=== PATIENT | male | born 1995 | race Two or more races ===

== ENCOUNTER 2018-11-12 15:37 | Inpatient (IN) | payer MEDICAID ==
[2018-11-12] VITALS (7 sets, daily range): BP systolic 118–135; BP diastolic 73–87
[~2018-11-12] VITALS: Ht 180.3 cm; Wt 73.5 kg
--- NOTE | 2018-11-12 15:37 | NUR ---
ED Nurse Note: DR KEMP EXPLAINED TO PT THAT HE NEEDS TO BE ADMITTED DUE TO INFECTION. PT IS AGITATED. RESTLESS AND COMBATIVE. YELLING AT DR KEMP AND PRIMARY RN. OFFICE MACHINE INSPECTOR CALLED.
--- NOTE | 2018-11-12 15:38 | NUR ---
ED Nurse Note: PT BROUGHT IN BY EMS DUE TO RIGHT WRIST INFECTION. PER EMS, PT WAS DETAINED WITH [employer] A FEW DAYS AGO AND TRIED TO REMOVE HAND FROM IT AND STARTED TO SHOW SIGNS OF REDNESS, SWELLING AND LACERATION. PT IS AAO X4, AMBULATORY, NOTED RIGHT WRIST AND HAND SWELLING WITH REDNESS AND DEEP LACERATION WITH PUS SURROUNDING WRIST. ALSO NOTED LEFT WRIST LACERATION WITH SLIGHT REDNESS. DR KEMP AWARE.
[2018-11-12] MEDS ORDERED: Haloperidol 5mg/ml Inj ONE (15:40)
[2018-11-12] MEDS ORDERED: DiphenhydrAMINE 50mg/ml Inj ONE (15:41)
[2018-11-12] MEDS ORDERED: LORazepam Inj 2mg/ml 1ml ONE (15:41)
[2018-11-12] MEDS ORDERED: LORazepam Inj 2mg/ml 1ml IM ONE (15:45)
[2018-11-12] MEDS ORDERED: DiphenhydrAMINE 50mg/ml Inj IM ONE (15:45)
[2018-11-12] MEDS ORDERED: Haloperidol 5mg/ml Inj IM ONE (15:45)
--- NOTE | 2018-11-12 15:53 | Emergency Room Report ---
History of Present Illness General Chief Complaint: Laceration Source: Patient, EMS (Yan Green MD) Present Illness HPI Patient is residing at a rehab [facility]. EMS was called because he has a right wrist injury from handcuffs several days ago. They feel that the wound is getting worse and needs further care. EMS was called out and then he refused to go initially. The second time they convinced him to be transported. The patient states he supposed be taking antibiotics at this time. It is unknown what evaluation transpired prior to his being at this rehab facility. The patient has a history of schizophrenia. Unknown what medications he is taking at this time. Apparently he was arrested at the facility Tuesday or Tuesday. He was placed in handcuffs at that time. Records from [facility] from November 09 reviewed. Apparently an ultrasound was performed on the lesions. No abscess was found bilaterally. He signed out AGAINST MEDICAL ADVICE. He was given prescriptions of Bactrim and Keflex. Apparently he never filled these. According to the documentation the skin was abraded but intact of the right wrist. Patient unable to answer other questions. (Yan Green MD) Allergies: Coded Allergies: No Known Allergies (Unverified , 11/12/18) Patient History Limited by: medical condition, other - patient refusing to answer questions Past Medical History: see triage record Social History: Reports: smoking, drug use Social History Narrative rehab facility Reviewed Nursing Documentation: PMH: Agreed; PSxH: Agreed (Yan Green MD) Review of Systems All Other Systems: limited (Yan Green MD) Physical Exam Vital Signs Date Time Temp Pulse Resp B/P (MAP) Pulse Ox O2 Delivery O2 Flow Rate FiO2 11/12/18 15:28 97.7 81 16 125/76 (92) 97 Room Air Sp02 EP Interpretation: reviewed, normal General Appearance: well appearing, GCS 15, mild distress Head: normocephalic, atraumatic Eyes: bilateral eye PERRL, bilateral eye Scleral Injection ENT: dry mucus membranes Neck: supple Respiratory: lungs clear, normal breath sounds Cardiovascular #1: regular rate, rhythm Cardiovascular #2: 2+ radial (R) - good capillary fill, 2+ radial (L) Gastrointestinal: normal inspection, normal bowel sounds, non tender, no mass, non-distended Musculoskeletal: back normal, gait/station normal, normal range of motion, swelling - R hand and forearm Neurologic: alert, normal gait, motor weakness - R hand, sensory deficit - superficial radial - hard to assess, oriented - X2 Psychiatric: anxious, other - paranoid, violent Skin: normal inspection, warm/dry, laceration - deep R wrist radial side to bone, tendons lacerated, erythema extends up to elbow, lesser lacs bilat L and also ulnar side of R wrist (Yan Green MD) Procedures Critical Care Time Critical Care Time Total Critical Care Time: Psychosis, 120 min bedside evaluation and treatment excludes procedures (EKG). Reason for critical care: Violent behavior, open wound with tendon laceration right wrist, cellulitis, possible sepsis Possible complications: hypotension, hypertension, OH, shock, arrhythmias, metabolic acidosis, end organ damage, respiratory failure. Interventions: Restraints, sedation, sepsis resuscitation, IV antibiotics, wound dressing, multiple attempts at transfer, admission with discussion with admitting physician and consults discussion with family Course: Patient presented with open wound right forearm and psychosis. Restraints and sedation needed. Evaluation of wounds with examination and labs. Fluid resuscitation and antibiotics begun. Tetanus administered. Repeat evaluation and removal of restraints. Discussion with family. Tracking down old records and discussion with [employer]. Multiple attempts at transfer to higher level of care with multiple presentations. Discussion with admitting physician and in-house orthopedic and surgery consultants. Consultations: nursing staff, EMS, family, JOSÉ MIGUEL [place], [facility], [facility], admitting MD, ortho and surgery consults Performed by: Dr. Green Tolerated well condition = serious (Yan Green MD) Medical Decision Making Medical: Substance Abuse Behavioral: Schizophrenia Reaction to Intervention: Escalated Behavior Restraint Reassesment I, Yan Green MD, have personally evaluated this patient. Laboratory tests have been reviewed and addressed accordingly. The patient is deemed to present a danger to themselves and/or others. This is based on the exam, history and observed or reported behavior. Attempts for non-invasive measures have been considered and/or attempted, however, have been futile. It is in the best interest of the nursing staff, the patient, and others involved in this patient's care that behavioral restraints be applied. Patient evaluation reveals the following: patient with life threatening injury to R wrist and delusional and paranoid. Escalating and not responding to attempts to calm. (Yan Green MD) Diagnostic Impression: Primary Impression: Wrist laceration Qualified Codes: S61.511A - Laceration without foreign body of right wrist, initial encounter Additional Impressions: Cellulitis Qualified Codes: L03.113 - Cellulitis of right upper limb Elevated lactic acid level Amphetamine abuse Schizoaffective disorder Qualified Codes: F25.9 - Schizoaffective disorder, unspecified Extensor tendon laceration of finger with open wound Qualified Codes: S56.429A - Laceration of extensor muscle, fascia and tendon of unspecified finger at forearm level, initial encounter; S61.209A - Unspecified open wound of unspecified finger without damage to nail, initial encounter Psychosis Qualified Codes: F29 - Unspecified psychosis not due to a substance or known physiological condition ER Course Patient presents with a deep laceration to the right radial side of the wrist with tendon injury and bone exposed. This is a potentially life and limb threatening if infection and injury. Cultures and lab work will be obtained. Antibiotics will be begun intravenously. This will need higher level of care surgical treatment. Patient with paranoid delusions and psychotic and combative. Restraints applied and sedation ordered. Presented to [facility]. D/C restraints. Elevated lactic acid. Sepsis resuscitation initiated and antibiotics had been ordered. (Contact JOSÉ MIGUEL and [facility]). [facility] not moving on transfer. Asks we call [facility] and [facility]. JOSÉ MIGUEL here. [facility] not have capacity. [facility] no beds - capacity. Represented to [facility]. Request labs. 20:[address] You. Initially stated that he would consider accepting the patient. Transfer center called back - stated they wanted an MRI before accepting the patient. I stated we did not have this capacity. They stated they refused the patient. They also requested employment specialist/program manager to see the patient. Admit Dr. Pierce. Consult with Dr. Emerson and Dr. Alexandra sent. As patient with recent psychosis, unable to sign out. Sitter requested. Apparently the lesions and skin were intact on November 09. This suggests either the wrist lesion opened up on its own or he did something to cut into himself. Laboratory Tests Test 11/12/18 15:58 11/12/18 16:20 11/12/18 18:30 White Blood Count 10.6 K/UL (4.8-10.8) Red Blood Count 4.69 M/UL (4.70-6.10) L Hemoglobin 13.1 G/DL (14.2-18.0) L Hematocrit 37.9 % (42.0-52.0) L Mean Corpuscular Volume 81 FL (80-99) Mean Corpuscular Hemoglobin 28.0 PG (27.0-31.0) Mean Corpuscular Hemoglobin Concent 34.6 G/DL (32.0-36.0) Red Cell Distribution Width 12.9 % (11.6-14.8) Platelet Count 285 K/UL (150-450) Mean Platelet Volume 5.5 FL (6.5-10.1) L Neutrophils (%) (Auto) 64.2 % (45.0-75.0) Lymphocytes (%) (Auto) 20.2 % (20.0-45.0) Monocytes (%) (Auto) 13.8 % (1.0-10.0) H Eosinophils (%) (Auto) 0.8 % (0.0-3.0) Basophils (%) (Auto) 1.0 % (0.0-2.0) Sodium Level 143 MMOL/L (136-145) Potassium Level 3.4 MMOL/L (3.5-5.1) L Chloride Level 105 MMOL/L (98-107) Carbon Dioxide Level 18 MMOL/L (21-32) L Anion Gap 20 mmol/L (5-15) H Blood Urea Nitrogen 18 mg/dL (7-18) Creatinine 1.2 MG/DL (0.55-1.30) Estimate Glomerular Filtration Rate > 60 mL/min (>60) Glucose Level 117 MG/DL (74-106) H Lactic Acid Level 7.40 mmol/L (0.4-2.0) H 0.50 mmol/L (0.66-2.22) L Calcium Level 9.4 MG/DL (8.5-10.1) Total Bilirubin 0.6 MG/DL (0.2-1.0) Aspartate Amino Transferase (AST) 17 U/L (15-37) Alanine Aminotransferase (ALT) 27 U/L (12-78) Alkaline Phosphatase 97 U/L (46-116) Total Creatine Kinase 129 U/L (26-308) Total Protein 7.8 G/DL (6.4-8.2) Albumin 3.2 G/DL (3.4-5.0) L Globulin 4.6 g/dL Albumin/Globulin Ratio 0.7 (1.0-2.7) L Salicylates Level 1.9 ug/mL (2.8-20) L Acetaminophen Level < 2 MCG/ML (10-30) L Serum Alcohol < 3 mg/dL Urine Color Yellow Urine Appearance Cloudy Urine pH 6 (4.5-8.0) Urine Specific [place] 1.020 (1.005-1.035) Urine Protein 2+ (NEGATIVE) H Urine Glucose (UA) Negative (NEGATIVE) Urine Ketones 1+ (NEGATIVE) H Urine Blood 5+ (NEGATIVE) H Urine Nitrite Negative (NEGATIVE) Urine Bilirubin Negative (NEGATIVE) Urine Urobilinogen 1 MG/DL (0.0-1.0) H Urine Leukocyte Esterase 1+ (NEGATIVE) H Urine RBC Tntc /HPF (0 - 0) H Urine WBC 2-4 /HPF (0 - 0) Urine Squamous Epithelial Cells Moderate /LPF (NONE/OCC) H Urine Bacteria Few /HPF (NONE) Urine Opiates Screen Negative (NEGATIVE) Urine Barbiturates Screen Negative (NEGATIVE) Phencyclidine (PCP) Screen Negative (NEGATIVE) Urine Amphetamines Screen Positive (NEGATIVE) H Urine Benzodiazepines Screen Negative (NEGATIVE) Urine Cocaine Screen Negative (NEGATIVE) Urine Marijuana (THC) Screen Positive (NEGATIVE) H (Yan Green MD) ER Course Dr. Alexandra called regarding patient. I discussed the case with him. Patient is otherwise stable. He is calm. He does not need emergent surgery or orthopedic consultation at this moment in time. Dr. Alexandra will see the patient as consultation in the morning. (Moise Ng MD) Other X-Ray Diagnostic Results Other X-Ray Diagnostic Results : X-Ray ordered: R wrist # of Views/Limited Vs Complete: 3 View Indication: Other EP Interpretation: Yes Interpretation: no dislocation, no fractures, other - ST defect Impression: Other Electronically Signed by: Electronically signed by Yan Green MD (Yan Green MD) Last Vital Signs Date Time Temp Pulse Resp B/P (MAP) Pulse Ox O2 Delivery O2 Flow Rate FiO2 11/12/18 21:20 97.9 73 16 134/85 100 Room Air Status: improved (Yan Green MD) Disposition: ADMITTED INPATIENT Condition: Serious Scripts Unable to Obtain Active Prescriptions or Reported Meds Yan Green MD Nov 12, 2018 15:53 Moise Ng MD Nov 12, 2018 23:03
--- NOTE | 2018-11-12 16:00 | NUR ---
ED Nurse Note: BELONGINGS PLACED ON PSYCH LOCKER #3.
[2018-11-12 16:11] LABS: EOSINOPHILS % (AUTO) 0.8 % (0.0-3.0); HEMATOCRIT 37.9 % (42.0-52.0); HEMOGLOBIN 13.1 G/DL (14.2-18.0); LYMPHOCYTES % (AUTO) 20.2 % (20.0-45.0); MEAN CORPUSCULAR VOLUME 81 FL (80-99); MONOCYTES % (AUTO) 13.8 % (1.0-10.0); NEUTROPHILS % (AUTO) 64.2 % (45.0-75.0); PLATELET COUNT 285 K/UL (150-450); RED BLOOD COUNT 4.69 M/UL (4.70-6.10); RED CELL DISTRIBUTION WIDTH 12.9 % (11.6-14.8); WHITE BLOOD COUNT 10.6 K/UL (4.8-10.8)
--- NOTE | 2018-11-12 16:16 | NUR ---
ED Nurse Note: PT IS CALM AND COOPERATIVE AT THIS TIME. ABLE TO FOLLOW COMMANDS. DR KEMP NOTIFIED.
[2018-11-12 16:22] LABS: ANION GAP 20 mmol/L (5-15); BLOOD UREA NITROGEN 18 mg/dL (7-18); CALCIUM 9.4 MG/DL (8.5-10.1); CARBON DIOXIDE 18 MMOL/L (21-32); CHLORIDE 105 MMOL/L (98-107); CREATININE 1.2 MG/DL (0.55-1.30); POTASSIUM 3.4 MMOL/L (3.5-5.1); SODIUM 143 MMOL/L (136-145)
--- NOTE | 2018-11-12 16:30 | NUR ---
ED Nurse Note: COVERED RIGHT WRIST WITH ABD PAD AND WRAPPED WITH KERLIX THEN SECURED WITH TAPE.
[2018-11-12 16:38] LABS: ALANINE AMINOTRANSFERASE 27 U/L (12-78); ALBUMIN 3.2 G/DL (3.4-5.0); ALBUMIN/GLOBULIN RATIO 0.7 (1.0-2.7); ALKALINE PHOSPHATASE 97 U/L (46-116); ASPARTATE AMINO TRANSFERASE 17 U/L (15-37); BILIRUBIN,TOTAL 0.6 MG/DL (0.2-1.0); CREATINE KINASE 129 U/L (26-308)
--- NOTE | 2018-11-12 16:57 | NUR ---
ED Nurse Note: URINE COLLECTED THEN SENT.
--- NOTE | 2018-11-12 17:01 | NUR ---
ED Nurse Note: FAMILY MEMBERS AT THE BED SIDE.
[2018-11-12 17:10] LABS: APPEARANCE,URINE CLOUDY; BILIRUBIN, URINE NEGATIVE (NEGATIVE); GLUCOSE, URINE (UA) NEGATIVE (NEGATIVE); KETONES,URINE 1+ (NEGATIVE); LEUKOCYTE ESTERASE ,URINE 1+ (NEGATIVE); NITRITE,URINE NEGATIVE (NEGATIVE); PH,URINE 6 (4.5-8.0); PROTEIN,URINE 2+ (NEGATIVE); UROBILINOGEN,URINE 1 MG/DL (0.0-1.0)
[2018-11-12 17:14] LABS: COLOR,URINE YELLOW
[2018-11-12] MEDS ORDERED: Tetanus/Diptheria/Pertussis IM ONE (17:45)
--- NOTE | 2018-11-12 19:06 | NUR ---
HAND-OFF: Report given to RODRÍGUEZ NICKERSON.
--- NOTE | 2018-11-12 19:07 | NUR ---
ED Nurse Note: PT RESTING IN BED, FAMILY AT BEDSIDE, VSS AT THE MOMENT NO SIGNS OF ACUTE DISTRESS.
--- NOTE | 2018-11-12 19:09 | NUR ---
Jason speaking with Guanaco at [facility] fac e sheet and doctors dictation faxed to [phone] as requested.
--- NOTE | 2018-11-12 19:09 | NUR ---
ED Nurse Note: NOTED RIGHT CALF CLOSED SORE AND RIGHT ACHILLES HEALED LESION. PT WOUND ON RIGHT WRIST HAS BEEN CLEANED AND DRESSED PER POWERHOUSE OILER. NOTED HEALED WOUND ON LEFT WRIST IS CLEAN AND INTACT.
--- NOTE | 2018-11-12 19:29 | NUR ---
ED Nurse Note: ERMD AND [employer] AT BEDSIDE
--- NOTE | 2018-11-12 20:30 | NUR ---
Ramon from [facility](op#[id number]) called-no availabe beds at count of [place] or [facility]. notified.
--- NOTE | 2018-11-12 21:11 | NUR ---
ED Nurse Note: pt right wrist dressing was changed again per fly raiser lockstitch. pt is resting in bed, no acute signs of distress. 300ml/hr 1 L NS running per ermd.
--- NOTE | 2018-11-12 22:05 | NUR ---
ED Nurse Note: xray at bedside
--- NOTE | 2018-11-12 22:09 | NUR ---
ED Nurse Note: Xray complete
--- NOTE | 2018-11-12 23:00 | NUR ---
ED Nurse Note: Pt is asleep in bed, provided pt with an additional blanket.
--- NOTE | 2018-11-12 23:27 | NUR ---
ED Nurse Note: telephone endorsement given to KRISHAN Valentine
--- NOTE | 2018-11-12 23:28 | NUR ---
NURSE NOTES: Telephone report taken from BHARGAVI Bartlett RN.
--- NOTE | 2018-11-13 | NUR ---
ED Nurse Note: PT TRANSFERRED TO TELE BY JOHN ZEPEDA. PT IS AOX4, ON ROOM AIR, PT SKIN INTACT EXEMPT FROM THOSE DOCUMENTED. PLEASE REFER TO INTERVENTION AND NURSES NOTES. PT SHOWS NO ACUTE DISTRESS S/S. ALL BELONGINGS HAVE BEEN BROUGHT UP TO TELE WITH PT.
[2018-11-13 00:10] VITALS: BP 114/69
--- NOTE | 2018-11-13 00:10 | NUR ---
NURSE NOTES: Patient brought up to floor via [facility] with BHARGAVI Guerrero transport. Patient is sedated, responds to name, shaking, and pain, but immediately falls back to sleep. No signs of distress on room air. Is having pain through the right wrist, as observed by facial grimacing, pulling extremity away, and slight moaning. Further pain assessment to be done. IV site is c/d/i and patent, no fluids running currently. Multiple skin issues present. Left wrist has closed laceration wound, no photo take. Rt lower leg has 2 closed wounds. Right wrist is major area of concern. Upon removal of bandage it shows major lacerations on internal larger than external areas. Photos taken and wound cleaned before redressing, wound assessment done, see interventions. VS stable. MD contacted for new patient orders, awaiting phone call. Belonging at bedside, signed by RN, patient alert that belongings are at bedside. Continue to monitor all areas of skin concern, wound consult to be placed. Bed in lowest position, call light within reach.
[2018-11-13] MEDS ORDERED: DiphenhydrAMINE 50mg/ml Inj IVP PRN (01:30)
[2018-11-13] MEDS ORDERED: LORazepam Inj 2mg/ml 1ml IV PRN (01:30)
[2018-11-13] MEDS ORDERED: Piperacillin/Tazobactam 3.375 GM in NS 110 ML IVPB SCH (02:00)
[2018-11-13] MEDS: Vancomycin 750mg/D5W 275ml IVPB SCH ×6 (02:40→18:46)
--- NOTE | 2018-11-13 03:00 | NUR ---
NURSE NOTES: Patient woke up asking for food, RN got him something to eat. Changed his dressing again, krillex, saline gauze, dry gauze, and bandage wrap. Continue to monitor wound.
[2018-11-13 04:00] VITALS: BP 118/71
[2018-11-13] MEDS: Piperacillin/Tazobactam 3.375 GM in NS 110 ML IVPB SCH ×3 (04:00→20:35)
--- NOTE | 2018-11-13 07:10 | NUR ---
NURSE NOTES:bedside rounds with mike mohr.patient asleep,room air,nad.,iv infusing well.will continue to monitor.
[2018-11-13 07:13] LABS: BASOPHILS % (AUTO) 1.8 % (0.0-2.0); EOSINOPHILS % (AUTO) 2.6 % (0.0-3.0); HEMATOCRIT 35.7 % (42.0-52.0); HEMOGLOBIN 12.3 G/DL (14.2-18.0); LYMPHOCYTES % (AUTO) 24.1 % (20.0-45.0); MEAN CORPUSCULAR VOLUME 82 FL (80-99); MONOCYTES % (AUTO) 13.9 % (1.0-10.0); NEUTROPHILS % (AUTO) 57.6 % (45.0-75.0); PLATELET COUNT 248 K/UL (150-450); RED BLOOD COUNT 4.34 M/UL (4.70-6.10); RED CELL DISTRIBUTION WIDTH 13.8 % (11.6-14.8); WHITE BLOOD COUNT 6.3 K/UL (4.8-10.8)
--- NOTE | 2018-11-13 07:16 | NUR ---
HAND-OFF: Report given to KRISHAN Ramírez. Patient is asleep in bed, VS stable. Wound consult placed.
[2018-11-13 07:30] LABS: ANION GAP 9 mmol/L (5-15); BLOOD UREA NITROGEN 6 mg/dL (7-18); CALCIUM 8.3 MG/DL (8.5-10.1); CARBON DIOXIDE 25 MMOL/L (21-32); CHLORIDE 107 MMOL/L (98-107); CREATININE 0.6 MG/DL (0.55-1.30); POTASSIUM 3.3 MMOL/L (3.5-5.1); SODIUM 141 MMOL/L (136-145)
[2018-11-13 08:00] VITALS: BP 118/62
--- NOTE | 2018-11-13 08:55 | NUR ---
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
[2018-11-13 12:00] VITALS: BP 129/71
[2018-11-13] MEDS ORDERED: Isovue-300 100ml vial INJ PRN (13:45)
--- NOTE | 2018-11-13 14:14 | NUR ---
NURSE NOTES:SEEN BY WOUND NURSE,AND REDRESSED RIGHT WRIST WOUND WITH ZEROFORM,08/31,MAR[facility] ANTONIO. Addendum: 11/13/18 at 1421 by KIRSTIE HAYES RN NURSE NOTES:RIGHT HAND SWOLLEN,WARM TO TOUCH,ABLE TO MOVE,CLAIMS HE HAS PAIN ONLY ON MOVEMENT.
[2018-11-13] MEDS ORDERED: Gadavist 7.5mMol/7.5ml vial IV PRN (15:30)
--- NOTE | 2018-11-13 15:36 | Consultation ---
History of Present Illness General Date patient seen: Nov 13, 2018 Reason for Hospitalization: Laceration Present Illness HPI This is a 23-year-old male who presented to the emergency department at [facility] with worsening right wrist wound. Patient states that he was placed by [employer] in handcuffs few days ago and was extremely combative where he sustained a large laceration because of the handcuffs to the wrist. He did not take care of the wound since and has been worsening. He states he went to outside facility and was given oral antibiotics and discharged. Upon presentation to [facility] he was recommended for transfer to tertiary center with a hand surgeon but was unable to be transferred and required admission. Surgery called to evaluate. Patient seen, patient evaluated, chart reviewed. Allergies: Coded Allergies: No Known Allergies (Unverified , 11/12/18) Medication History Unable to Obtain Active Prescriptions or Reported Meds Patient History History Provided By: Patient, Medical Record, PMD Healthcare decision maker Resuscitation status Full Code Advanced Directive on File Past Medical/Surgical History Past Medical/Surgical History: (1) Psychosis (2) Extensor tendon laceration of finger with open wound (3) Elevated lactic acid level (4) Schizoaffective disorder (5) Amphetamine abuse (6) Wrist laceration (7) Cellulitis Review of Systems Review of Symptoms General ROS: no weight loss or fever Psychological ROS: no depression or mood changes, no memory loss Ophthalmic ROS: no visual changes or eye irritation ENT ROS: no nasal congestion, hearing loss, dizziness Allergy and Immunology ROS: no allergic symptoms or urticaria Hematological and Lymphatic ROS: no swollen glands, unusual bleeding or bruising Endocrine ROS: no polyuria, polydipsia, weight changes, temperature intolerance Respiratory ROS: no cough, shortness of breath, or wheezing Cardiovascular ROS: no chest pain or dyspnea on exertion Gastrointestinal ROS: denies abdominal pain, no bright red blood in stool. Musculoskeletal ROS: no myalgias or arthralgias Neurological ROS: no TIA or stroke symptoms Dermatological ROS: no new or changing skin lesions, rashes or pruritis Physical Exam Physical Exam General appearance: alert, cooperative, no distress, appears stated age Head: Normocephalic, without obvious abnormality, atraumatic Eyes: conjunctivae/corneas clear. PERRL, EOM's intact. Fundi benign Throat: Lips, mucosa, and tongue normal. Teeth and gums normal Neck: supple, symmetrical, trachea midline, no adenopathy, thyroid: not enlarged, symmetric, no tenderness/mass/nodules, no carotid bruit and no JVD Lungs: clear to auscultation bilaterally Heart: regular rate and rhythm, S1, S2 normal, no murmur, click, rub or gallop Abdomen: soft, non-tender. Bowel sounds normal. No masses, no organomegaly Extremities: extremities traumatic as noted in photos and below with edema Pulses: 2+ and symmetric Skin: Skin color, texture, turgor normal. No rashes or lesions Neurologic: Grossly normal Last 24 Hour Vital Signs Date Time Temp Pulse Resp B/P (MAP) Pulse Ox O2 Delivery O2 Flow Rate FiO2 11/13/18 12:00 98.0 75 20 129/71 (90) 98 11/13/18 09:45 Room Air 11/13/18 08:00 98.0 74 19 118/62 (80) 98 11/13/18 04:00 98.1 68 18 118/71 (87) 99 11/13/18 01:09 Room Air 11/13/18 00:10 97.8 68 18 114/69 (84) 99 11/13/18 00:00 98.2 88 16 127/85 98 Room Air 11/12/18 21:20 97.9 73 16 134/85 100 Room Air 11/12/18 19:05 98.4 67 16 121/84 100 Room Air 11/12/18 17:35 98.0 75 18 122/87 100 Room Air 11/12/18 16:22 89 15 98 Room Air 11/12/18 16:07 83 15 100 Room Air 11/12/18 15:52 75 16 99 Room Air 11/12/18 15:37 97.7 88 20 135/78 98 Room Air 11/12/18 15:37 88 20 98 Room Air 11/12/18 15:28 97.7 81 16 125/76 (92) 97 Room Air Intake and Output 11/12/18 11/13/18 19:00 07:00 Intake Total 2800 ml 1025 ml Output Total 1100 ml Balance 2800 ml -75 ml Intake Oral 425 ml IV Total 2800 ml 600 ml Output Urine Total 1100 ml # Voids 2 Laboratory Tests Test 11/12/18 15:58 11/12/18 16:20 6/16/19 18:30 11/13/18 05:48 White Blood Count 10.6 K/UL (4.8-10.8) 6.3 K/UL (4.8-10.8) Red Blood Count 4.69 M/UL (4.70-6.10) L 4.34 M/UL (4.70-6.10) L Hemoglobin 13.1 G/DL (14.2-18.0) L 12.3 G/DL (14.2-18.0) L Hematocrit 37.9 % (42.0-52.0) L 35.7 % (42.0-52.0) L Mean Corpuscular Volume 81 FL (80-99) 82 FL (80-99) Mean Corpuscular Hemoglobin 28.0 PG (27.0-31.0) 28.3 PG (27.0-31.0) Mean Corpuscular Hemoglobin Concent 34.6 G/DL (32.0-36.0) 34.4 G/DL (32.0-36.0) Red Cell Distribution Width 12.9 % (11.6-14.8) 13.8 % (11.6-14.8) Platelet Count 285 K/UL (150-450) 248 K/UL (150-450) Mean Platelet Volume 5.5 FL (6.5-10.1) L 5.5 FL (6.5-10.1) L Neutrophils (%) (Auto) 64.2 % (45.0-75.0) 57.6 % (45.0-75.0) Lymphocytes (%) (Auto) 20.2 % (20.0-45.0) 24.1 % (20.0-45.0) Monocytes (%) (Auto) 13.8 % (1.0-10.0) H 13.9 % (1.0-10.0) H Eosinophils (%) (Auto) 0.8 % (0.0-3.0) 2.6 % (0.0-3.0) Basophils (%) (Auto) 1.0 % (0.0-2.0) 1.8 % (0.0-2.0) Sodium Level 143 MMOL/L (136-145) 141 MMOL/L (136-145) Potassium Level 3.4 MMOL/L (3.5-5.1) L 3.3 MMOL/L (3.5-5.1) L Chloride Level 105 MMOL/L (98-107) 107 MMOL/L (98-107) Carbon Dioxide Level 18 MMOL/L (21-32) L 25 MMOL/L (21-32) Anion Gap 20 mmol/L (5-15) H 9 mmol/L (5-15) Blood Urea Nitrogen 18 mg/dL (7-18) 6 mg/dL (7-18) L Creatinine 1.2 MG/DL (0.55-1.30) 0.6 MG/DL (0.55-1.30) Estimat Glomerular Filtration Rate > 60 mL/min (>60) > 60 mL/min (>60) Glucose Level 117 MG/DL (74-106) H 100 MG/DL (74-106) Lactic Acid Level 7.40 mmol/L (0.4-2.0) H 0.50 mmol/L (0.66-2.22) L Calcium Level 9.4 MG/DL (8.5-10.1) 8.3 MG/DL (8.5-10.1) L Total Bilirubin 0.6 MG/DL (0.2-1.0) Aspartate Amino Transf (AST/SGOT) 17 U/L (15-37) Alanine Aminotransferase (ALT/SGPT) 27 U/L (12-78) Alkaline Phosphatase 97 U/L (46-116) Total Creatine Kinase 129 U/L (26-308) Total Protein 7.8 G/DL (6.4-8.2) Albumin 3.2 G/DL (3.4-5.0) L Globulin 4.6 g/dL Albumin/Globulin Ratio 0.7 (1.0-2.7) L Salicylates Level 1.9 ug/mL (2.8-20) L Acetaminophen Level < 2 MCG/ML (10-30) L Serum Alcohol < 3 mg/dL Urine Color Yellow Urine Appearance Cloudy Urine pH 6 (4.5-8.0) Urine Specific [place] 1.020 (1.005-1.035) Urine Protein 2+ (NEGATIVE) H Urine Glucose (UA) Negative (NEGATIVE) Urine Ketones 1+ (NEGATIVE) H Urine Blood 5+ (NEGATIVE) H Urine Nitrite Negative (NEGATIVE) Urine Bilirubin Negative (NEGATIVE) Urine Urobilinogen 1 MG/DL (0.0-1.0) H Urine Leukocyte Esterase 1+ (NEGATIVE) H Urine RBC Tntc /HPF (0 - 0) H Urine WBC 2-4 /HPF (0 - 0) Urine Squamous Epithelial Cells Moderate /LPF (NONE/OCC) H Urine Bacteria Few /HPF (NONE) Urine Opiates Screen Negative (NEGATIVE) Urine Barbiturates Screen Negative (NEGATIVE) Phencyclidine (PCP) Screen Negative (NEGATIVE) Urine Amphetamines Screen Positive (NEGATIVE) H Urine Benzodiazepines Screen Negative (NEGATIVE) Urine Cocaine Screen Negative (NEGATIVE) Urine Marijuana (THC) Screen Positive (NEGATIVE) H Microbiology Date/Time Source Procedure Growth Status 11/12/18 16:00 Wrist Right Gram Stain - Final Resulted 11/12/18 16:00 Wound Culture - Preliminary Streptococcus Group A Resulted Height (Feet): 5 Height (Inches): 9.00 Weight (Pounds): 130 Medications Current Medications Medications (Trade) Dose Ordered Sig/Elizabeth Route PRN Reason Start Time Stop Time Status Last Admin Dose Admin Acetaminophen (Tylenol) 650 mg Q4H PRN ORAL Mild Pain/Temp > 100.5 11/13/18 01:30 12/13/18 01:29 Al Hydroxide/Mg Hydroxide (Mylanta) 30 ml Q4H PRN ORAL Heartburn 11/13/18 01:30 12/13/18 01:29 Diphenhydramine HCl (Benadryl) 50 mg Q6H PRN IVP Itching 11/13/18 01:30 12/13/18 01:29 Iopamidol (Isovue-300 100ml) 100 ml NOW PRN INJ Radiology Procedure 11/13/18 13:45 11/15/18 13:35 Lorazepam (Ativan 2mg/ml 1ml) 1 mg Q3H PRN IV For Anxiety 11/13/18 01:30 11/20/18 01:29 Morphine Sulfate (Morphine Sulfate) 2 mg Q3H PRN IVP For Pain 11/13/18 01:30 11/20/18 01:29 Ondansetron HCl (Zofran) 4 mg Q6H PRN IVP Nausea & Vomiting 11/13/18 01:30 12/13/18 01:29 Pantoprazole (Protonix) 40 mg BID ORAL 11/13/18 09:00 12/13/18 08:59 11/13/18 10:26 Piperacillin Sod/ Tazobactam Sod 3.375 gm/Sodium Chloride 110 ml @ 27.5 mls/hr Q8H IVPB 11/13/18 04:00 11/20/18 03:59 11/13/18 12:32 Sodium Chloride 1,000 ml @ 100 mls/hr Q10H IV 11/13/18 01:30 12/13/18 01:29 11/13/18 01:30 Tetanus/ Diphtheria Toxoids Adsorbed (Tetanus/ Diphtheria Toxoid adsorbed) 0.5 ml ONCE ONCE IM 11/13/18 16:00 11/13/18 16:01 Vancomycin HCl (Vanco rx to dose) 1 ea DAILY PRN MISC Per rx protocol 11/13/18 01:30 12/13/18 01:29 Vancomycin HCl 750 mg/Dextrose 275 ml @ 183.333 mls/hr Q8H IVPB 11/13/18 03:00 11/18/18 02:59 11/13/18 11:24 Assessment/Plan Problem List: (1) Wrist laceration Assessment & Plan: 23-year-old male with history of IVDA and psych issues presents with worsening right wrist laceration/open wound after sustaining wound from being in handcuffs and combative. On the right wrist patient has a near circumferential approximately two thirds of the wrist with loss of dermis and subcutis tissue down to tendon with slough and mildly foul odor. There is edema of the right hand and all digits. Patient does have motor and sensory passive and active in the right hand and extremity. He does not exhibit any signs of radial median or ulnar nerve injury. He has a palpable right radial artery which is a significant portion of the subcu tissue has been lost. I agree with the ER physician strongly recommend the patient should have gone to a tertiary center for care. Multiple tertiary centers including [facility] and [facility] were contacted for transfer given the trauma and patient needs but declined for numerous reasons. Patient is currently in our hospital facility where hand surgeon is not available. I myself is the on-call general surgeon evaluated the patient and identified that he is at risk for developing further infection and potentially loss of limb. Given these findings I discussed the above with patient in detail. Patient expressed understanding. In the meantime until patient will require care and will plan for taking patient in the operating room for wound washout debridement nonviable tissue and possible wound VAC placement. IV antibiotics IV fluids Local wound care Thank you will follow with Recs ICD Codes: S61.519A - Laceration without foreign body of unspecified wrist, initial encounter SNOMED: 912483817 Qualifiers: Qualified Codes: S61.511A - Laceration without foreign body of right wrist, initial encounter (2) Cellulitis ICD Codes: L03.90 - Cellulitis, unspecified SNOMED: 176634778 Qualifiers: Qualified Codes: L03.113 - Cellulitis of right upper limb (3) Psychosis ICD Codes: F29 - Unspecified psychosis not due to a substance or known physiological condition SNOMED: 34708007 Qualifiers: Qualified Codes: F29 - Unspecified psychosis not due to a substance or known physiological condition (4) Extensor tendon laceration of finger with open wound ICD Codes: S56.429A - Laceration of extensor muscle, fascia and tendon of unspecified finger at forearm level, initial encounter; S61.209A - Unspecified open wound of unspecified finger without damage to nail, initial encounter SNOMED: 99128790 Qualifiers: Qualified Codes: S56.429A - Laceration of extensor muscle, fascia and tendon of unspecified finger at forearm level, initial encounter; S61.209A - Unspecified open wound of unspecified finger without damage to nail, initial encounter (5) Elevated lactic acid level ICD Codes: R79.89 - Other specified abnormal findings of blood chemistry SNOMED: 4277666 (6) Schizoaffective disorder ICD Codes: F25.9 - Schizoaffective disorder, unspecified SNOMED: 63429925 Qualifiers: Qualified Codes: F25.9 - Schizoaffective disorder, unspecified (7) Amphetamine abuse ICD Codes: F15.10 - Other stimulant abuse, uncomplicated SNOMED: [id number] Gustavo Corrigan Nov 13, 2018 15:36
--- NOTE | 2018-11-13 15:37 | Pre-Procedure Note/Attestation ---
Pre-Procedure Note/Attestation Complete Prior to Procedure Planned Procedure: right Procedure Narrative: Right wrist open wound exploration with washout possible excisional debridement possible wound VAC placement Indications for Procedure Pre-Operative Diagnosis: open right wrist wound Attestation I attest that I discussed the nature of the procedure; its benefits; risks and complications; and alternatives (and the risks and benefits of such alternatives ), prior to the procedure, with the patient (or the patient's legal freight representative). I attest that, if there was a reasonable possibility of needing a blood transfusion, the patient (or the patient's legal freight representative) was given the [facility] standardized written summary, pursuant to the Edu Naselle Blood Safety Act ([place] Health and Safety Code # 1645, as amended). I attest that I re-evaluated the patient just prior to the surgery and that there has been no change in the patient's H&P, except as documented below: Gustavo Corrigan Nov 13, 2018 15:37
[2018-11-13 16:00] VITALS: BP 125/69
[2018-11-13] MEDS ORDERED: Tetanus-Diphtheria Toxoid IM ONE (16:00)
--- NOTE | 2018-11-13 16:02 | Diagnostic Imaging Report ---
Clinical Indication:Wrist pain, trauma Technique: 3 views of the right wrist Comparison: None Findings: Exam is limited, as the distal aspect of the distal carpal row is excluded from the AP view. No gross acute fractures. No dislocations. The joint spaces are preserved. Is questionably a soft tissue defect versus a skinfold lateral to the greater tuberosity of the radius Impression: . Limited exam, as described No definite acute bony trauma Possible lateral soft tissue defect-correlate with clinical findings
--- NOTE | 2018-11-13 17:04 | NUR ---
NURSE NOTES:TO RADIOLOGY FOR MRI RIGHT WRIST BY WHEELCHAIR..STABLE ON PICKUP.NPO POST MIDNIGHT FOR ELECTIVE SURGERY IN AM.PATIENT CONSENTED.
--- NOTE | 2018-11-13 17:30 | Consultation ---
DATE OF CONSULTATION: 11/13/2018 INFECTIOUS DISEASE CONSULTATION CONSULTING PHYSICIAN: Rabia Chen M.D. REFERRING PHYSICIAN: Arsenio Pierce M.D. REASON FOR CONSULTATION: Right wrist cellulitis. HISTORY OF PRESENT ILLNESS: This is a 23-year-old gentleman with history of schizophrenia, who had a right wrist injury from handcuffs. He was supposed to be taking antibiotics, but he was not sure what he is taking, and Infectious Disease consultation has been obtained for antibiotics. He went to [facility] and he left against medical advice. He was given prescription for Keflex and Bactrim, but he never filled these. PAST MEDICAL HISTORY: History of schizophrenia. SOCIAL HISTORY: Unknown. FAMILY HISTORY: Unknown. REVIEW OF SYSTEMS: Unable to obtain currently. MEDICATIONS: As an inpatient, he is on Zosyn, vancomycin, Protonix, lorazepam, morphine, Benadryl, Tylenol, Mylanta, and Zofran. ALLERGIES: No known drug allergies. PHYSICAL EXAMINATION: VITAL SIGNS: Temperature 98, T-max of 98.4, pulse 74, respiratory rate 19, and blood pressure 118/62. O2 saturation of 98%. HEENT: Pupils are equally reactive to light and accommodation. Mouth appears clean without thrush. NECK: Supple. No adenopathy. No JVD. CARDIOVASCULAR: Regular rate and rhythm. No murmurs. LUNGS: Clear to auscultation bilaterally. No crackles. No wheezes. ABDOMEN: Soft and nontender. No organomegaly. EXTREMITIES: No cyanosis. No clubbing. Right wrist swelling and wound noted with erythema and drainage. LABORATORY DATA: White count 6.3, hemoglobin 12.3, hematocrit 35.7, MCV 82, platelet count 248, neutrophils of 57%. Sodium 141, potassium 3.3, chloride 107, bicarb 25, BUN 6, and creatinine 0.6. Glucose 100. Calcium 8.3. Total bilirubin 0.6, AST 17, ALT 27, and alkaline phosphatase 97. CK 129. Total protein 7.8, albumin 3.2. UA showing 2 to 4 white cells. Wound cultures from 11/12/2018 growing group A streptococcus. ASSESSMENT: This is a 23-year-old gentleman with history of schizophrenia who had developed right wrist cellulitis with possible abscess from a handcuff with group A streptococcus. 1. Would be concerned regarding an underlying abscess as a possibility. 2. History of schizophrenia. PLAN: 1. Continue IV vancomycin and Zosyn for now. 2. We will follow up cultures and adjust antibiotics. 3. We would suggest an orthopedic evaluation. 4. We will order a CT of the right hand. I would like to thank Dr. Pierce for this consultation. Rabia Chen M.D. DR: SHYAM JOB#: [id number] CC:
[2018-11-13] MEDS ORDERED: Tubing IV Secondary IV ONE (17:31)
[2018-11-13] MEDS ORDERED: D5W 275ml ONE (17:31)
--- NOTE | 2018-11-13 19:12 | NUR ---
NURSE NOTES:Patient received from ARMANDO Ling Patient A/A/AOX4 . Patient denie pain at this time . no s/s of distress noted . IVF infusing well right wrist swollen noted and dressing C/ D /I warm to touch. able to move .Safety /fall Implemented . call light within reach . bed im low position at all times . bed alarm on.
--- NOTE | 2018-11-13 19:15 | NUR ---
HAND-OFF: Report given to DANK VALDIVIA.PATIENT STABLE ON REPORT.
[2018-11-13 20:00] VITALS: BP 114/72
[2018-11-14] VITALS (13 sets, daily range): BP systolic 105–155; BP diastolic 56–105
--- NOTE | 2018-11-14 | NUR ---
NURSE NOTES:patient NPO after midnight . patient verbalized with understanding.
[2018-11-14] MEDS: Morphine Sulfate 2mg/ml Inj(IV/IM USE ONLY) IVP PRN ×2 (00:35→20:44)
--- NOTE | 2018-11-14 00:47 | NUR ---
nurse's notes: noted bleeding on the right wrist; dressing changed. instructed patient to keep right extremity elevated on 2 pillows and the left arm on 1 pillow; patient verbalized understanding. pain medication given with good results. will continue to monitor.
[2018-11-14] MEDS: Vancomycin 750mg/D5W 275ml IVPB SCH ×2 (02:43)
--- NOTE | 2018-11-14 03:30 | History and Physical Report ---
DATE OF ADMISSION: 11/12/2018 HISTORY OF PRESENT ILLNESS: This is a 23-year-old male residing [place] rehab [place]. The patient was brought in due to right wrist injury with handcuff several days ago. The pain is getting worse. The patient was brought in for evaluation. The patient was apparently supposed to take antibiotics, but did not. The patient does have a history of schizophrenia. Notes from [facility] were available. Ultrasound done shows no significant findings. The patient apparently left against medical advice and was given Bactrim and Keflex PAST MEDICAL HISTORY: As above. MEDICATIONS: Reviewed. ALLERGIES: Reviewed. PHYSICAL EXAMINATION: GENERAL: A well-developed male, in no significant distress at present. VITAL SIGNS: Otherwise stable. LUNGS: Clear. CARDIAC: S1 and S2. Regular rate and rhythm. EXTREMITIES: Swelling in the right hand and forearm and deep right wrist with tendons lacerated with erythema noted. IMPRESSION: Very deep laceration with possible tendon involvement, cellulitis and possible abcess. The patient with need orthopedic and general surgery evaluation. The patient may need transfer to higher level of care. We will discuss and expedite. The patient will require an MRI. Surgical consult called in the emergency room. Await further recommendations. The patient is guarded. Will need close followup and recommendations and we will discuss further. Arsenio Pierce M.D. DR: DILLAN JOB#: [id number] CC: JANN
[2018-11-14] MEDS: Piperacillin/Tazobactam 3.375 GM in NS 110 ML IVPB SCH ×3 (04:05→20:21)
[2018-11-14 06:34] LABS: ALANINE AMINOTRANSFERASE 30 U/L (12-78); ALBUMIN 2.5 G/DL (3.4-5.0); ALBUMIN/GLOBULIN RATIO 0.6 (1.0-2.7); ALKALINE PHOSPHATASE 84 U/L (46-116); ANION GAP 10 mmol/L (5-15); ASPARTATE AMINO TRANSFERASE 20 U/L (15-37); BILIRUBIN,TOTAL 0.4 MG/DL (0.2-1.0); BLOOD UREA NITROGEN 8 mg/dL (7-18); CALCIUM 8.6 MG/DL (8.5-10.1); CARBON DIOXIDE 25 MMOL/L (21-32); CHLORIDE 104 MMOL/L (98-107); CREATININE 0.7 MG/DL (0.55-1.30); INR 0.9 (0.9-1.1); POTASSIUM 3.9 MMOL/L (3.5-5.1); SODIUM 139 MMOL/L (136-145)
[2018-11-14 06:36] LABS: BASOPHILS % (AUTO) 0.9 % (0.0-2.0); EOSINOPHILS % (AUTO) 3.4 % (0.0-3.0); HEMOGLOBIN 13.6 G/DL (14.2-18.0); LYMPHOCYTES % (AUTO) 33.1 % (20.0-45.0); MEAN CORPUSCULAR VOLUME 83 FL (80-99); MONOCYTES % (AUTO) 9.8 % (1.0-10.0); NEUTROPHILS % (AUTO) 52.8 % (45.0-75.0); PLATELET COUNT 316 K/UL (150-450); RED BLOOD COUNT 4.81 M/UL (4.70-6.10); RED CELL DISTRIBUTION WIDTH 14.1 % (11.6-14.8); WHITE BLOOD COUNT 5.9 K/UL (4.8-10.8)
--- NOTE | 2018-11-14 07:00 | NUR ---
HAND-OFF: Report given to Desiree Cardenas
--- NOTE | 2018-11-14 07:37 | NUR ---
NURSE NOTES:BEDSIDE ROUNDS,REPORT GIVEN BY DANK VALDIVIA.PATIENT AWAKE A/OX4,ROOM AIR,AMBULATORY TO BATHROOM.IV SITES X2 PATENT,RIGHT WRIST DRSNG.C/D/I.REMAINS NPO FOR SURGERY.PATIENT AWARE.NO C/O PAIN.
--- NOTE | 2018-11-14 08:29 | General Progress Note ---
Assessment/Plan Assessment/Plan: extensive laceration secondary infection PLAN surgery for drainage antibiotics transition to higher level of care CM aware Subjective Allergies: Coded Allergies: No Known Allergies (Unverified , 11/12/18) Subjective surgery and ID appreciated Objective Last 24 Hour Vital Signs Date Time Temp Pulse Resp B/P (MAP) Pulse Ox O2 Delivery O2 Flow Rate FiO2 11/14/18 07:37 Room Air 11/14/18 04:00 97.5 67 18 121/70 (87) 97 11/14/18 01:05 98.2 11/14/18 00:00 98.3 77 18 105/61 (76) 98 11/13/18 22:58 Room Air 11/13/18 20:00 98.2 79 18 114/72 (86) 99 11/13/18 16:00 98.1 73 20 125/69 (87) 99 11/13/18 12:00 98.0 75 20 129/71 (90) 98 11/13/18 09:45 Room Air Intake and Output 11/13/18 11/14/18 18:59 06:59 Intake Total 1385.0 ml 2324.165 ml Balance 1385.0 ml 2324.165 ml Intake Oral 600 ml 590 ml IV Total 785.0 ml 1734.165 ml # Voids 4 4 Laboratory Tests 11/14/18 05:45: White Blood Count 5.9, Red Blood Count 4.81, Hemoglobin 13.6L, Hematocrit 40.0L , Mean Corpuscular Volume 83, Mean Corpuscular Hemoglobin 28.2, Mean Corpuscular Hemoglobin Concent 33.9, Red Cell Distribution Width 14.1, Platelet Count 316, Mean Platelet Volume 5.4L, Neutrophils (%) (Auto) 52.8, Lymphocytes ( %) (Auto) 33.1, Monocytes (%) (Auto) 9.8, Eosinophils (%) (Auto) 3.4H, Basophils (%) (Auto) 0.9, Erythrocyte Sedimentation Rate 56H, Prothrombin Time 9.5, Prothromb Time International Ratio 0.9, Activated Partial Thromboplast Time 31, Sodium Level 139, Potassium Level 3.9, Chloride Level 104, Carbon Dioxide Level 25, Anion Gap 10, Blood Urea Nitrogen 8, Creatinine 0.7, Estimat Glomerular Filtration Rate > 60, Glucose Level 93, Calcium Level 8.6, Total Bilirubin 0.4, Aspartate Amino Transf (AST/SGOT) 20, Alanine Aminotransferase ( ALT/SGPT) 30, Alkaline Phosphatase 84, C-Reactive Protein, Quantitative 6.4H, Total Protein 6.6, Albumin 2.5L, Globulin 4.1, Albumin/Globulin Ratio 0.6L Height (Feet): 5 Height (Inches): 11.00 Weight (Pounds): 130 Objective WDWN NAD clear breath sounds bilaterally without rhonchi or wheeze [id number] without MRG NABS nontender no HSM no CCE nonfocal right hand dressed Arsenio Pierce MD Nov 14, 2018 08:29
--- NOTE | 2018-11-14 11:00 | Infectious Diseases Prog Note ---
Assessment/Plan Assessment/Plan antibiotics : vancomycin iv, zosyn A 1. right wrist cellulitis, possible abscess with group A streptococcus 2. s/p injury with handcuffs P 1. continue iv vancomycin, zosyn 2. surgery planned 3. will follow up cultures Subjective Constitutional: Denies: fever, chills Respiratory: Denies: shortness of breath, dry cough Gastrointestinal/Abdominal: Denies: nausea, vomiting, diarrhea Musculoskeletal: Reports: pain - decreased Allergies: Coded Allergies: No Known Allergies (Unverified , 11/12/18) Objective Vital Signs Last 24 Hour Vital Signs Date Time Temp Pulse Resp B/P (MAP) Pulse Ox O2 Delivery O2 Flow Rate FiO2 11/14/18 08:00 98.0 70 18 136/72 (93) 100 11/14/18 07:37 Room Air 11/14/18 04:00 97.5 67 18 121/70 (87) 97 11/14/18 01:05 98.2 11/14/18 00:00 98.3 77 18 105/61 (76) 98 11/13/18 22:58 Room Air 11/13/18 20:00 98.2 79 18 114/72 (86) 99 11/13/18 16:00 98.1 73 20 125/69 (87) 99 11/13/18 12:00 98.0 75 20 129/71 (90) 98 Height (Feet): 5 Height (Inches): 11.00 Weight (Pounds): 130 Respiratory/Chest: lungs clear Cardiovascular: normal rate, regular rhythm, no gallop/murmur Abdomen: soft, non tender Extremities: no edema, other - right hand in dressings Microbiology Date/Time Source Procedure Growth Status 11/12/18 15:40 Blood Blood Culture - Preliminary NO GROWTH AFTER 24 HOURS Resulted 11/12/18 15:40 Blood Blood Culture - Preliminary NO GROWTH AFTER 24 HOURS Resulted 11/12/18 16:00 Wrist Right Gram Stain - Final Resulted 11/12/18 16:00 Wound Culture - Preliminary Streptococcus Group A Resulted Laboratory Tests Test 11/14/18 05:45 11/14/18 09:50 White Blood Count 5.9 K/UL (4.8-10.8) Red Blood Count 4.81 M/UL (4.70-6.10) Hemoglobin 13.6 G/DL (14.2-18.0) L Hematocrit 40.0 % (42.0-52.0) L Mean Corpuscular Volume 83 FL (80-99) Mean Corpuscular Hemoglobin 28.2 PG (27.0-31.0) Mean Corpuscular Hemoglobin Concent 33.9 G/DL (32.0-36.0) Red Cell Distribution Width 14.1 % (11.6-14.8) Platelet Count 316 K/UL (150-450) Mean Platelet Volume 5.4 FL (6.5-10.1) L Neutrophils (%) (Auto) 52.8 % (45.0-75.0) Lymphocytes (%) (Auto) 33.1 % (20.0-45.0) Monocytes (%) (Auto) 9.8 % (1.0-10.0) Eosinophils (%) (Auto) 3.4 % (0.0-3.0) H Basophils (%) (Auto) 0.9 % (0.0-2.0) Erythrocyte Sedimentation Rate 56 MM/HR (0-15) H Prothrombin Time 9.5 SEC (9.30-11.50) Prothromb Time International Ratio 0.9 (0.9-1.1) Activated Partial Thromboplast Time 31 SEC (23-33) Sodium Level 139 MMOL/L (136-145) Potassium Level 3.9 MMOL/L (3.5-5.1) Chloride Level 104 MMOL/L (98-107) Carbon Dioxide Level 25 MMOL/L (21-32) Anion Gap 10 mmol/L (5-15) Blood Urea Nitrogen 8 mg/dL (7-18) Creatinine 0.7 MG/DL (0.55-1.30) Estimat Glomerular Filtration Rate > 60 mL/min (>60) Glucose Level 93 MG/DL (74-106) Calcium Level 8.6 MG/DL (8.5-10.1) Total Bilirubin 0.4 MG/DL (0.2-1.0) Aspartate Amino Transf (AST/SGOT) 20 U/L (15-37) Alanine Aminotransferase (ALT/SGPT) 30 U/L (12-78) Alkaline Phosphatase 84 U/L (46-116) C-Reactive Protein, Quantitative 6.4 mg/dL (0.00-0.90) H Total Protein 6.6 G/DL (6.4-8.2) Albumin 2.5 G/DL (3.4-5.0) L Globulin 4.1 g/dL Albumin/Globulin Ratio 0.6 (1.0-2.7) L Vancomycin Level Trough 5.3 ug/mL (5.0-12.0) Current Medications Medications (Trade) Dose Ordered Sig/Elizabeth Route PRN Reason Start Time Stop Time Status Last Admin Dose Admin Acetaminophen (Tylenol) 650 mg Q4H PRN ORAL Mild Pain/Temp > 100.5 11/13/18 01:30 12/13/18 01:29 Al Hydroxide/Mg Hydroxide (Mylanta) 30 ml Q4H PRN ORAL Heartburn 11/13/18 01:30 12/13/18 01:29 Diphenhydramine HCl (Benadryl) 50 mg Q6H PRN IVP Itching 11/13/18 01:30 12/13/18 01:29 Gadobutrol (Gadavist) 7.5 mmol NOW PRN IV Radiology Procedure 11/13/18 15:30 11/17/18 15:26 Iopamidol (Isovue-300 100ml) 100 ml NOW PRN INJ Radiology Procedure 11/13/18 13:45 11/15/18 13:35 Lorazepam (Ativan 2mg/ml 1ml) 1 mg Q3H PRN IV For Anxiety 11/13/18 01:30 11/20/18 01:29 Morphine Sulfate (Morphine Sulfate) 2 mg Q3H PRN IVP For Pain 11/13/18 01:30 11/20/18 01:29 11/14/18 00:35 Ondansetron HCl (Zofran) 4 mg Q6H PRN IVP Nausea & Vomiting 11/13/18 01:30 12/13/18 01:29 Pantoprazole (Protonix) 40 mg BID ORAL 11/13/18 09:00 12/13/18 08:59 11/13/18 18:47 Piperacillin Sod/ Tazobactam Sod 3.375 gm/Sodium Chloride 110 ml @ 27.5 mls/hr Q8H IVPB 11/13/18 04:00 11/20/18 03:59 11/14/18 04:05 Sodium Chloride 1,000 ml @ 100 mls/hr Q10H IV 11/13/18 01:30 12/13/18 01:29 11/14/18 08:00 Vancomycin HCl (Vanco rx to dose) 1 ea DAILY PRN MISC Per rx protocol 11/13/18 01:30 12/13/18 01:29 Vancomycin HCl 750 mg/Dextrose 275 ml @ 183.333 mls/hr Q8H IVPB 11/13/18 03:00 11/18/18 02:59 11/14/18 02:43 Rabia Chen MD Nov 14, 2018 11:00
[2018-11-14] MEDS: Vancomycin 1gm/D5W 275ml IVPB SCH ×4 (13:37→22:26)
--- NOTE | 2018-11-14 14:08 | NUR ---
CASE MANAGEMENT:REVIEW 11/14/2018 SI:RIGHT WRIST CELLULITIS T 98.1 HR 72 RR 17 B/P 127/70 SATS 100% ON RA WNL IS:IVF @ 100 ml/HR PROTONIX PO BID ZOSYN IV Q8H VANCO IV Q8H MED/SURG STATUS DCP: PATIENT TO BE DISCHARGED TO APPROPRIATE LOCATION ONCE MEDICALLY CLEARED. PLAN OF CARE: TRANSFER FOR OC
--- NOTE | 2018-11-14 14:29 | Surgery Progress Note ---
Surgery Progress Note Subjective Additional Comments no acute events. stable. OR today Objective Last 24 Hour Vital Signs Date Time Temp Pulse Resp B/P (MAP) Pulse Ox O2 Delivery O2 Flow Rate FiO2 11/14/18 12:09 98.1 72 17 127/70 (89) 100 11/14/18 08:00 98.0 70 18 136/72 (93) 100 11/14/18 07:37 Room Air 11/14/18 04:00 97.5 67 18 121/70 (87) 97 11/14/18 01:05 98.2 11/14/18 00:00 98.3 77 18 105/61 (76) 98 11/13/18 22:58 Room Air 11/13/18 20:00 98.2 79 18 114/72 (86) 99 11/13/18 16:00 98.1 73 20 125/69 (87) 99 I&O Intake and Output 11/13/18 11/14/18 19:00 07:00 Intake Total 1385.0 ml 2324.165 ml Balance 1385.0 ml 2324.165 ml Intake Oral 600 ml 590 ml IV Total 785.0 ml 1734.165 ml # Voids 4 4 Dressing: saturated Wound: other Drains: other Cardiovascular: RSR Respiratory: clear, decreased breath sounds Abdomen: soft, present bowel sounds, non-distended Extremities: no tenderness, no cyanosis Laboratory Tests Test 11/14/18 05:45 11/14/18 09:50 White Blood Count 5.9 K/UL (4.8-10.8) Red Blood Count 4.81 M/UL (4.70-6.10) Hemoglobin 13.6 G/DL (14.2-18.0) L Hematocrit 40.0 % (42.0-52.0) L Mean Corpuscular Volume 83 FL (80-99) Mean Corpuscular Hemoglobin 28.2 PG (27.0-31.0) Mean Corpuscular Hemoglobin Concent 33.9 G/DL (32.0-36.0) Red Cell Distribution Width 14.1 % (11.6-14.8) Platelet Count 316 K/UL (150-450) Mean Platelet Volume 5.4 FL (6.5-10.1) L Neutrophils (%) (Auto) 52.8 % (45.0-75.0) Lymphocytes (%) (Auto) 33.1 % (20.0-45.0) Monocytes (%) (Auto) 9.8 % (1.0-10.0) Eosinophils (%) (Auto) 3.4 % (0.0-3.0) H Basophils (%) (Auto) 0.9 % (0.0-2.0) Erythrocyte Sedimentation Rate 56 MM/HR (0-15) H Prothrombin Time 9.5 SEC (9.30-11.50) Prothromb Time International Ratio 0.9 (0.9-1.1) Activated Partial Thromboplast Time 31 SEC (23-33) Sodium Level 139 MMOL/L (136-145) Potassium Level 3.9 MMOL/L (3.5-5.1) Chloride Level 104 MMOL/L (98-107) Carbon Dioxide Level 25 MMOL/L (21-32) Anion Gap 10 mmol/L (5-15) Blood Urea Nitrogen 8 mg/dL (7-18) Creatinine 0.7 MG/DL (0.55-1.30) Estimat Glomerular Filtration Rate > 60 mL/min (>60) Glucose Level 93 MG/DL (74-106) Calcium Level 8.6 MG/DL (8.5-10.1) Total Bilirubin 0.4 MG/DL (0.2-1.0) Aspartate Amino Transf (AST/SGOT) 20 U/L (15-37) Alanine Aminotransferase (ALT/SGPT) 30 U/L (12-78) Alkaline Phosphatase 84 U/L (46-116) C-Reactive Protein, Quantitative 6.4 mg/dL (0.00-0.90) H Total Protein 6.6 G/DL (6.4-8.2) Albumin 2.5 G/DL (3.4-5.0) L Globulin 4.1 g/dL Albumin/Globulin Ratio 0.6 (1.0-2.7) L Vancomycin Level Trough 5.3 ug/mL (5.0-12.0) Plan Problems: (1) Wrist laceration Assessment & Plan: 23-year-old male with history of IVDA and psych issues presents with worsening right wrist laceration/open wound after sustaining wound from being in handcuffs and combative. On the right wrist patient has a near circumferential approximately two thirds of the wrist with loss of dermis and subcutis tissue down to tendon with slough and mildly foul odor. There is edema of the right hand and all digits. Patient does have motor and sensory passive and active in the right hand and extremity. He does not exhibit any signs of radial median or ulnar nerve injury. He has a palpable right radial artery which is a significant portion of the subcu tissue has been lost. I agree with the ER physician strongly recommend the patient should have gone to a tertiary center for care. Multiple tertiary centers including [facility] and [facility] were contacted for transfer given the trauma and patient needs but declined for numerous reasons. Patient is currently in our hospital facility where hand surgeon is not available. I myself is the on-call general surgeon evaluated the patient and identified that he is at risk for developing further infection and potentially loss of limb. Given these findings I discussed the above with patient in detail. Patient expressed understanding. In the meantime until patient will require care and will plan for taking patient in the operating room for wound washout debridement nonviable tissue and possible wound VAC placement. IV antibiotics IV fluids Local wound care Or TODAY Thank you will follow with Recs (2) Cellulitis (3) Psychosis (4) Extensor tendon laceration of finger with open wound (5) Elevated lactic acid level (6) Schizoaffective disorder (7) Amphetamine abuse Gustavo Corrigan Nov 14, 2018 14:29
--- NOTE | 2018-11-14 14:44 | NUR ---
RD ASSESSMENT & RECOMMENDATIONS SEE CARE ACTIVITY FOR COMPLETE ASSESSMENT DAILY ESTIMATED NEEDS: Needs based on Wound, underweight/ 59kg 30-35 kcals/kg 2330-4902 total kcals 1.25-1.8 g protein/kg 74-106 g total protein 25-30 mL/kg 3501-0687 total fluid mLs NUTRITION DIAGNOSIS: Increased kcal/prot intake needs R/T wound healing, underweight status as evidenced by pt admitted w/ open wound @ rt wrist with loss of dermis and subcutis tissue down to tendon with slough and mildly foul odor per MD, pending debridement and possible wound vac placement, low BMI per guidelines. CURRENT DIET:NPO for surgery PO DIET RECOMMENDATIONS: REGULAR, double protein portions + Snacks TID ADDITIONAL RECOMMENDATIONS: * Standing wt for accurate CBW, weekly wts given underweight status * Wound healing: add MVI w/ min 1 tab QD, Vit C 500mg BID : ZnSO4 220mg QD x 10 days : Darin 1pkt BID * Snacks TID in b/w meals
--- NOTE | 2018-11-14 14:55 | Anethesia Preoperative Eval ---
Anesthesia Pre-op PMH/ROS General Date of Evaluation: Nov 14, 2018 Anesthesiologist: Montrell ASA Score: ASA 2 - E Mallampati Score Class I : Soft palate, uvula, fauces, pillars visible Class II: Soft palate, uvula, fauces visible Class III: Soft palate, base of uvula visible Class IV: Only hard plate visible Mallampati Classification: Class I Surgeon: Meenu Diagnosis: Right wrist wound Surgical Procedure: Right wrist I&D Anesthesia History: none Social History: drug use - amphetamine and marijuuana use Family History: no anesthesia problems Allergies: Coded Allergies: No Known Allergies (Unverified , 11/12/18) Medications: see eMAR Patient NPO?: Yes NPO Date: Nov 14, 2018 NPO Time: 0000 Past Medical History Cardiovascular: Denies: HTN, CAD, [place], valve dz, arrhythmia, other Pulmonary: Denies: asthma, COPD, MELISSA, other Gastrointestinal/Genitourinary: Denies: GERD, CRI, ESRD, other Neurologic/Psychiatric: Reports: other - schizophrenia; Denies: dementia, CVA, depression/anxiety, TIA Endocrine: Denies: DM, hypothyroidism, steroids, other HEENT: Denies: cataract (L), cataract (R), glaucoma, [place] (L), [place] (R), other Hematology/Immune: Denies: anemia, DVT, bleeding disorder, other Musculoskeletal/Integumentary: Denies: OA, RA, DJD, DDD, edema, other Other: other - wrist laceration with cellulitis and extensor tendor laceraion PSxH Narrative: Denies Anesthesia Pre-op Phys. Exam Physician Exam Last Vital Signs Date Time Temp Pulse Resp B/P (MAP) Pulse Ox O2 Delivery O2 Flow Rate FiO2 11/14/18 12:09 98.1 72 17 127/70 (89) 100 11/14/18 07:37 Room Air Constitutional: NAD Cardiovascular: RRR Respiratory: CTA Airway Exam Mallampati Score: Class II MO: full ROM: full Anesthesia Pre-op A/P Labs Hematology Test 11/14/18 05:45 White Blood Count 5.9 K/UL (4.8-10.8) Red Blood Count 4.81 M/UL (4.70-6.10) Hemoglobin 13.6 G/DL (14.2-18.0) L Hematocrit 40.0 % (42.0-52.0) L Mean Corpuscular Volume 83 FL (80-99) Mean Corpuscular Hemoglobin 28.2 PG (27.0-31.0) Mean Corpuscular Hemoglobin Concent 33.9 G/DL (32.0-36.0) Red Cell Distribution Width 14.1 % (11.6-14.8) Platelet Count 316 K/UL (150-450) Mean Platelet Volume 5.4 FL (6.5-10.1) L Neutrophils (%) (Auto) 52.8 % (45.0-75.0) Lymphocytes (%) (Auto) 33.1 % (20.0-45.0) Monocytes (%) (Auto) 9.8 % (1.0-10.0) Eosinophils (%) (Auto) 3.4 % (0.0-3.0) H Basophils (%) (Auto) 0.9 % (0.0-2.0) Erythrocyte Sedimentation Rate 56 MM/HR (0-15) H Coagulation Test 11/14/18 05:45 Prothrombin Time 9.5 SEC (9.30-11.50) Prothromb Time International Ratio 0.9 (0.9-1.1) Activated Partial Thromboplast Time 31 SEC (23-33) Chemistry Test 11/14/18 05:45 Sodium Level 139 MMOL/L (136-145) Potassium Level 3.9 MMOL/L (3.5-5.1) Chloride Level 104 MMOL/L (98-107) Carbon Dioxide Level 25 MMOL/L (21-32) Anion Gap 10 mmol/L (5-15) Blood Urea Nitrogen 8 mg/dL (7-18) Creatinine 0.7 MG/DL (0.55-1.30) Estimat Glomerular Filtration Rate > 60 mL/min (>60) Glucose Level 93 MG/DL (74-106) Calcium Level 8.6 MG/DL (8.5-10.1) Total Bilirubin 0.4 MG/DL (0.2-1.0) Aspartate Amino Transf (AST/SGOT) 20 U/L (15-37) Alanine Aminotransferase (ALT/SGPT) 30 U/L (12-78) Alkaline Phosphatase 84 U/L (46-116) C-Reactive Protein, Quantitative 6.4 mg/dL (0.00-0.90) H Total Protein 6.6 G/DL (6.4-8.2) Albumin 2.5 G/DL (3.4-5.0) L Globulin 4.1 g/dL Albumin/Globulin Ratio 0.6 (1.0-2.7) L Risk Assessment & Plan Assessment: ASA II Plan: GA vs MAC Status Change Before Surgery: No Pre-Antibiotics Drug: Lilly Seo MD Nov 14, 2018 14:55
--- NOTE | 2018-11-14 15:07 | NUR ---
NURSE NOTES:picked up by john by bed for surgery.patient stable on pickup.
[2018-11-14] MEDS ORDERED: Lidocaine 1% MPF 10mg/ml 5ml ONE (15:21)
[2018-11-14] MEDS ORDERED: Propofol 200mg/20ml IV ONE ×2 (15:21→16:12)
[2018-11-14] MEDS ORDERED: fentaNYL 100 mcg/2 mL IV ONE (15:21)
[2018-11-14] MEDS ORDERED: Midazolam 2mg/2ml Inj ONE (15:21)
[2018-11-14] MEDS ORDERED: Lidocaine 1% Plain 30 ml INJ ONE (15:30)
[2018-11-14] MEDS ORDERED: LR 1000ml ONE (15:30)
[2018-11-14] MEDS ORDERED: NeoSporin Gu Irrig 1ml Amp IRRIG ONE (15:30)
[2018-11-14] MEDS ORDERED: Bacitracin 50000 Units Vial ONE (15:30)
[2018-11-14] MEDS ORDERED: Sterile Water Irrig 1000ml IRRIG ONE (15:30)
[2018-11-14] MEDS ORDERED: NS Irrig 1000ml IRRIG ONE ×2 (15:40→16:08)
--- NOTE | 2018-11-14 15:45 | Diagnostic Imaging Report ---
Indication: Wrist trauma, laceration, infection Technique: Coronal and axial and sagittal proton-density fat-saturated, coronal and axial T2 fat saturated, coronal proton-density, axial T1, sagittal STIR, pre and postcontrast axial T1 fat saturated, coronal postcontrast T1 fat saturated images of the wrist. Comparison: Plain radiographs of earlier the same day Findings: There is a soft tissue defect, consistent with stated history of laceration, lateral to the radial styloid. This appears to be confined to the superficial subcutaneous fat. There is an area of nonenhancement on the postcontrast images which may reflect a flap of devascularized tissue. No definite susceptibility artifact to suggest radiopaque foreign body. There is circumferential edema, especially dorsally, the subcutaneous fat. No marrow signal abnormality to suggest osteomyelitis. No evidence of tendinous disruption. No definite fluid collection to suggest abscess demonstrated. There is thinning of the radial aspect of the triangular fibrocartilage complex noted on the coronal images. Impression: Evidence of soft tissue laceration over the radial styloid. This appears to involve the subcutaneous fat. Probable small flap of nonviable tissue demonstrated Evidence of diffuse circumferential soft tissue edema, may indicate cellulitis. No findings to suggest abscess No evidence of acute osteomyelitis or tendinous injury or fracture No evidence of foreign body Possible tear or degenerative change of the triangle fibrocartilage This agrees with the preliminary interpretation provided overnight by [facility] teleradiology service.
[2018-11-14] MEDS ORDERED: Lidocaine 1% 10mg/ml/Epi 0.005mg/ml 30ml vial INJ ONE (15:47)
[2018-11-14] MEDS ORDERED: LR 1000ml 1,000 ML IVLG SCH (16:09)
[2018-11-14] MEDS ORDERED: Metoclopramide 10mg/2ml Inj IVP PRN (16:15)
[2018-11-14] MEDS ORDERED: Meperidine 50mg/ml Inj(FOR RIGORS ONLY) IV PRN (16:15)
[2018-11-14] MEDS ORDERED: Ketorolac 30mg Inj IV PRN (16:15)
[2018-11-14] MEDS ORDERED: Hydromorphone 0.5mg/0.5ml inj IVP PRN (16:15)
[2018-11-14] MEDS ORDERED: Midazolam 2mg/2ml Inj IVP PRN (16:15)
[2018-11-14] MEDS ORDERED: Ketorolac 30mg Inj ONE (16:15)
[2018-11-14] MEDS ORDERED: DiphenhydrAMINE 50mg/ml Inj IVP PRN (16:15)
--- NOTE | 2018-11-14 16:39 | Brief Operative Note ---
Immediate Post Operative Note Operative Note Pre-op Diagnosis: open right wrist wound Procedure: right wrist washout excisional debridement of non viable tissue wound vac placement. Post-op Diagnosis: same as pre-op Surgeon: dora Anesthesiologist: ivis Anesthesia: general, local Specimen: yes Complications: none Condition: stable Fluids: see records Estimated Blood Loss: volume - 25 Drains: wound vac Implant(s) used?: No Gustavo Corrigan Nov 14, 2018 16:39
--- NOTE | 2018-11-14 16:53 | Immediate Post-Op Evaluation ---
Immediate Post-Op Evalulation Immediate Post-Op Evalulation Procedure: Debridement and woundvac placement of R wrist wound Date of Evaluation: Nov 14, 2018 Time of Evaluation: 16:51 IV Fluids: 400 Blood Products: none Estimated Blood Loss: min Urinary Output: none Blood Pressure Systolic: 134 Blood Pressure Diastolic: 56 Pulse Rate: 74 Respiratory Rate: 20 O2 Sat by Pulse Oximetry: 99 Temperature (Fahrenheit): 97.6 Pain Score (1-10): 2 Nausea: No Vomiting: No Complications none Patient Status: reacts, patent, none Hydration Status: adequate Tony Zelaya MD Nov 14, 2018 16:52
--- NOTE | 2018-11-14 18:30 | NUR ---
NURSE NOTES:RECEIVED FR. PACU BY BED,S/P ELECTIVE RIGHT WRIST SURGERY WITH WOUND VAC IN PLACE AND WORKING(SEE NOTES)FOR SETTING.SURGICAL DRSNG CLEAN/DRY/INTACT WITH SPLINT AND COBAN TAPE WRAPPED AROUND.STILL WITH SWOLLEN FINGERS BUT ABLE TO MOVE,SENSATION INTACT.POST OP ORDERS INFORMED AND UNDERSTOOD.NO C/O PAIN.
--- NOTE | 2018-11-14 18:45 | Operative Note - Dictated ---
DATE OF OPERATION: 11/14/2018 PREOPERATIVE DIAGNOSES: 1. Open right wrist wound infected. 2. Exposed tendons and fascia. POSTOPERATIVE DIAGNOSES: 1. Open right wrist wound infected. 2. Exposed tendons and fascia. OPERATION PERFORMED: 1. Wound exploration of right wrist open wound. 2. Right wrist open wound washout. 3. Excisional debridement of nonviable right wrist tissue. 4. Evaluation of fascia and tendon in right wrist. 5. Wound VAC placement. ATTENDING SURGEON: Gustavo Corrigan M.D. NETWORK TECHNICAL ANALYST: None. ANESTHESIOLOGIST: Tony Zelaya M.D. ANESTHESIA: General GETA plus local. ESTIMATED BLOOD LOSS: 25 mL. IV FLUIDS: Please see anesthesia records. COMPLICATIONS: None. DRAINS: Wound VAC. SPECIMENS: Necrotic tissue and cultures. COUNTS: Sponge and needle count correct x2. WOUND CLASSIFICATION: Class III. INDICATIONS FOR PROCEDURE: This is a 23-year-old male with history of IVDA and psychiatric issues, who was arrested by the [employer] recently and the patient was agitated and combative while in handcuffs causing significant soft tissue injury in the left wrist. It gone untreated for some time now and had been admitted to outside facility for evaluation, was given oral antibiotics and discharged and presented to [facility] in worsening condition. When seen at bedside, the patient had a near half circumferential open wound in his right wrist lateral aspect with breakdown of the dermis subcutaneous tissue down to the tendon and bone_ seen at the bedside, potentially bone. The radial artery was intact, but almost near exposed. The wound was foul smelling with fibrinous debris and exudate identified. The wrist had some separation identified and the patient had significant pain, discomfort and limited mobility, though did not express any median radial nerve injury based on clinical examination. Wound cultures identified with strep group A and gram-negative bacillus. Given these findings, it was recommended the patient go for the operating room for washout, debridement of nonviable tissue, evaluation of open wound and repair if necessary as well as wound VAC placement. Risks, benefits, and alternatives were discussed with the patient, who expressed understanding and consented. OPERATIVE NOTE: The patient was taken to the operating room and placed on the table in supine position with bilateral arms out. All bony prominences were well padded. SCDs were placed. Preoperative time-out was taken to identify the patient, procedure, operative staff, and surgical staff. General anesthesia was induced and the patient was intubated. The right upper extremity was prepped and draped circumferentially in standard surgical fashion. The wound was evaluated and irrigated. The wound was identified to be approximately 9 to 10 centimeters circumferentially covering pretty much the entire lateral aspect of the right wrist and a full-thickness down to tendon near bone with the medial aspect having some superficial abrasions. There was undermining in the posterior distal and anterior medial aspect. The wound was irrigated with copious amounts of antibiotic warm saline. The nonviable tissue and fibrinous exudate were debrided down to healthy viable tissue until good back bleeding was identified. The tendon was noted and the fascia with some abrasion, but no complete laceration and did not require immediate repair. The radial artery was intact and had fascial layer abutting it. At this time, the wound was completely cleansed and once the remainder of the wound was inspected and no other abnormalities were noted or urgent care required, a white foam was placed on the tendons followed by black foam, and a wound VAC applicated. A arm splint was placed. The remaining superficial wounds were covered with Xeroform and the arm was wrapped with Kerlix. The patient tolerated the procedure well and was taken to postanesthetic care unit in stable condition. Gustavo Corrigan M.D. DR: JAXSON JOB#: [id number] CC: JANN
--- NOTE | 2018-11-14 19:30 | NUR ---
HAND-OFF: Report given to JH RN WITH BEDSIDE ROUNDS.PATIENT STABLE..
--- NOTE | 2018-11-14 20:45 | NUR ---
NURSE NOTES: Received a report from KRISHAN Ramírez. Patient is awake and alert. Right wrist wound debridement site is applied with wound VAC and splint. Noted right hand swelling but motor and sensor are within normal range. Elevated with pillow. Pressure and aching pain 4/10 noted. Administered prn Morphine 4mg/1ml IV. Both legs SCD device on. Provide sandwiches and juice for snack. VRE/CRE culture are done and sent to lab. Leave call light within reach. Bed in locked and lowest position. Will continue to monitor. Addendum: 11/15/18 at 0647 by Rosas Alonso RN Correction: Morphine 2mg/ml IV
[2018-11-15] VITALS: BP 111/70
[2018-11-15] MEDS: Piperacillin/Tazobactam 3.375 GM in NS 110 ML IVPB SCH ×3 (03:28→20:16)
[2018-11-15 04:00] VITALS: BP 126/80
[2018-11-15] MEDS: Vancomycin 1gm/D5W 275ml IVPB SCH ×6 (05:23→22:06)
--- NOTE | 2018-11-15 07:30 | NUR ---
NURSE NOTES: Patient is in bed awake and able to verbalize needs. Stable. Denies pain or SOB. Wound vac in place as ordered. Patient encouraged to use call light for assistance, verbalized understanding. Patient is in good spirits in bed in locked position with call light within reach. Will continue to monitor.
--- NOTE | 2018-11-15 07:30 | NUR ---
HAND-OFF: Report given to KRISHAN Kirk. Rounds done. Pt in stable condition.
--- NOTE | 2018-11-15 07:40 | NUR ---
NURSE NOTES: Splint in place. Wound vac settings programmed as ordered, draining well. Patient is able to feel sensation on all right fingers and hand, patient is able to move right hand and fingers. Left wrist wound clean, dry. No drainage or signs of infection noted. Will continue to monitor.
[2018-11-15 08:00] VITALS: BP 106/65
--- NOTE | 2018-11-15 08:00 | NUR ---
NURSE NOTES: RN put SCD on patient's bilateral lower extremities. Patient stated, "they feel good. I purposely want to stay in bed all day." Patient encouraged to ambulate to benefit circulation and breathing. Patient refused and said he chooses to be on bedrest and is willingly bedbound. Patient aware of all risks and benefits.
[2018-11-15] MEDS: Morphine Sulfate 2mg/ml Inj(IV/IM USE ONLY) IVP PRN ×3 (08:30→18:35)
--- NOTE | 2018-11-15 10:19 | General Progress Note ---
Assessment/Plan Assessment/Plan: extensive laceration secondary infection post op PLAN surgery for drainage antibiotics transition to higher level of care CM aware Subjective Allergies: Coded Allergies: No Known Allergies (Unverified , 11/12/18) Subjective surgery and ID appreciated s/p debridement Objective Last 24 Hour Vital Signs Date Time Temp Pulse Resp B/P (MAP) Pulse Ox O2 Delivery O2 Flow Rate FiO2 11/15/18 04:00 97.7 72 17 126/80 (95) 99 11/15/18 00:00 98.5 60 18 111/70 (84) 99 11/14/18 21:00 Room Air 11/14/18 20:53 98.1 70 18 117/63 (81) 98 11/14/18 18:45 97.5 72 18 138/90 (106) 99 11/14/18 18:00 98.0 11/14/18 17:50 98.0 57 23 147/96 100 Nasal Cannula 3 11/14/18 17:35 66 19 151/105 100 Nasal Cannula 3 11/14/18 17:25 73 18 155/100 100 Nasal Cannula 3 11/14/18 17:15 66 19 148/104 100 Simple Mask 6 11/14/18 17:05 71 20 154/105 100 Simple Mask 6 11/14/18 17:00 67 22 151/98 100 Simple Mask 6 11/14/18 16:52 74 20 99 11/14/18 16:46 97.8 83 22 108/56 100 Simple Mask 6 11/14/18 12:09 98.1 72 17 127/70 (89) 100 Intake and Output 11/14/18 11/15/18 18:59 06:59 Intake Total 1050 ml 600 ml Output Total 15 ml Balance 1035 ml 600 ml Intake Oral 600 ml 600 ml IV Total 450 ml Estimated Blood Loss 15 ml # Voids 2 Height (Feet): 5 Height (Inches): 11.00 Weight (Pounds): 162 Objective WDWN NAD clear breath sounds bilaterally without rhonchi or wheeze [id number] without MRG NABS nontender no HSM no CCE nonfocal right hand dressed Arsenio Pierce MD Nov 15, 2018 10:18
[2018-11-15 12:00] VITALS: BP 136/86
--- NOTE | 2018-11-15 12:00 | NUR ---
NURSE NOTES: Patient refused I/S. Patient aware of risks and benefits. Patient continued to refuse.
--- NOTE | 2018-11-15 12:51 | NUR ---
CASE MANAGEMENT:REVIEW 11/15/2018 SI:RIGHT WRIST CELLULITIS T 97.7 HR 72 RR 17 B/P 126/80 SATS 99% ON RA NO LABS TODAY IS:IVF @ 100 ml/HR PROTONIX PO BID ZOSYN IV Q8H VANCO IV Q8H MED/SURG STATUS DCP: PATIENT TO BE DISCHARGED TO APPROPRIATE LOCATION ONCE MEDICALLY CLEARED. PLAN OF CARE: TRANSFER FOR [facility]
--- NOTE | 2018-11-15 14:52 | 48 Hour Post Anesthesia Eval ---
Post Anesthesia Evaluation Procedure: Debridement and woundvac placement of R wrist wound Date of Evaluation: Nov 15, 2018 Airway: patent Nausea: No Vomiting: No Hydration Status: adequate Cardiopulmonary Status: a baseline Mental Status/LOC: patient returned to baseline Post-Anesthesia Complications: 0 Follow-up care needed: N/A - further care as per primary team Lilly Avila MD Nov 15, 2018 14:52
--- NOTE | 2018-11-15 14:55 | NUR ---
DISCHARGE/TRANSFER: NOTE INFO FAXED TO MAC LIST. AWAITING MAC NUMBER. Addendum: 11/15/18 at 1702 by Sarah Gr CM AARON CONFIRMED THAT CLINICALS WERE RECEIVED. NO MAC NUMBER AVAILABLE YET.
--- NOTE | 2018-11-15 15:18 | Surgery Progress Note ---
Surgery Progress Note Subjective Procedure Performed right wrist washout excisional debridement of non viable tissue wound vac placement. Symptoms: improved, pain same, tolerating diet, voiding well, passing flatus, BM Objective Last 24 Hour Vital Signs Date Time Temp Pulse Resp B/P (MAP) Pulse Ox O2 Delivery O2 Flow Rate FiO2 11/15/18 12:00 98.0 68 18 136/86 (103) 100 11/15/18 09:00 Room Air 11/15/18 04:00 97.7 72 17 126/80 (95) 99 11/15/18 00:00 98.5 60 18 111/70 (84) 99 11/14/18 21:00 Room Air 11/14/18 20:53 98.1 70 18 117/63 (81) 98 11/14/18 18:45 97.5 72 18 138/90 (106) 99 11/14/18 18:00 98.0 11/14/18 17:50 98.0 57 23 147/96 100 Nasal Cannula 3 11/14/18 17:35 66 19 151/105 100 Nasal Cannula 3 11/14/18 17:25 73 18 155/100 100 Nasal Cannula 3 11/14/18 17:15 66 19 148/104 100 Simple Mask 6 11/14/18 17:05 71 20 154/105 100 Simple Mask 6 11/14/18 17:00 67 22 151/98 100 Simple Mask 6 11/14/18 16:52 74 20 99 11/14/18 16:46 97.8 83 22 108/56 100 Simple Mask 6 I&O Intake and Output 11/14/18 11/15/18 19:00 07:00 Intake Total 1050 ml 600 ml Output Total 15 ml Balance 1035 ml 600 ml Intake Oral 600 ml 600 ml IV Total 450 ml Estimated Blood Loss 15 ml # Voids 2 Dressing: dry Wound: clean Drains: wound vac Cardiovascular: RSR Respiratory: clear Abdomen: soft, flat, non-tender, present bowel sounds, non-distended Extremities: edema, tenderness, no cyanosis Laboratory Tests Test 11/15/18 12:15 Vancomycin Level Trough 9.5 ug/mL (5.0-12.0) Plan Problems: (1) Wrist laceration Assessment & Plan: 23-year-old male with history of IVDA and psych issues presents with worsening right wrist laceration/open wound after sustaining wound from being in handcuffs and combative. On the right wrist patient has a near circumferential approximately two thirds of the wrist with loss of dermis and subcutis tissue down to tendon with slough and mildly foul odor. There is edema of the right hand and all digits. Patient does have motor and sensory passive and active in the right hand and extremity. He does not exhibit any signs of radial median or ulnar nerve injury. He has a palpable right radial artery which is a significant portion of the subcu tissue has been lost. I agree with the ER physician strongly recommend the patient should have gone to a tertiary center for care. Multiple tertiary centers including [facility] and [facility] were contacted for transfer given the trauma and patient needs but declined for numerous reasons. Patient is currently in our hospital facility where hand surgeon is not available. I myself is the on-call general surgeon evaluated the patient and identified that he is at risk for developing further infection and potentially loss of limb. Given these findings I discussed the above with patient in detail. Patient expressed understanding. In the meantime until patient will require care and will plan for taking patient in the operating room for wound washout debridement nonviable tissue and possible wound VAC placement. IV antibiotics IV fluids s/p OR. see report will change VAC tomorrow or tuesday cont current care Thank you will follow with Recs (2) Cellulitis (3) Psychosis (4) Extensor tendon laceration of finger with open wound (5) Elevated lactic acid level (6) Schizoaffective disorder (7) Amphetamine abuse Gustavo Corrigan Nov 15, 2018 15:18
--- NOTE | 2018-11-15 16:00 | NUR ---
NURSE NOTES: Patient is disruptive throughout shift. Patient yells "NURSE!!!" even after being encouraged to use call light for assistance. Patient refuses to follow unit rules. Patient repeatedly demands food and drinks. Patient encouraged to use call light for assistance because other patients on unit have difficulty sleeping and become agitated when patient yells. Patient said, "ok" but does not stop disruptive behavior. Charge nurse aware.
[2018-11-15] MEDS ORDERED: NS 275ml ONE (17:50)
[2018-11-15] MEDS ORDERED: Tubing IV Secondary IV ONE (17:50)
--- NOTE | 2018-11-15 19:20 | NUR ---
NURSE NOTES: Report taken from KRISHAN Kirk. Patient awake and in bed, A&Ox4. RN endorsed that patient has been disruptive during day shift, monitor behavior. No signs of distress on room air. Both IV sites on Left UE, c/d/i and patent, open for antibiotic use. Patient has bandage covering debridement site on right wrist, MD changed today, no order to change dressing. Connected to wound vac, assess drainage and amount. Vac setting low, continuous at 125mmHg. Left wrist laceration closed, continue to assess area. Bed in lowest position, call light within reach.
--- NOTE | 2018-11-15 19:30 | NUR ---
HAND-OFF: Report given to Serge NICKERSON. patient is stable. Wound vac output approximately 15cc.
[2018-11-15 20:00] VITALS: BP 129/84
[2018-11-16] VITALS: BP 126/84
[2018-11-16] MEDS: Piperacillin/Tazobactam 3.375 GM in NS 110 ML IVPB SCH (04:28)
[2018-11-16] MEDS: Vancomycin 1gm/D5W 275ml IVPB SCH ×6 (06:31→23:01)
--- NOTE | 2018-11-16 07:37 | NUR ---
HAND-OFF: Report given to KRISHAN Montez and KRISHAN Ellis. patient is awake and in bed, VS stable.
[2018-11-16 08:00] VITALS: BP 134/92
--- NOTE | 2018-11-16 08:28 | General Progress Note ---
Assessment/Plan Assessment/Plan: extensive laceration secondary infection post op s/p I and D PLAN wound vac supportive care antibiotics transition to higher level of care CM aware Subjective Allergies: Coded Allergies: No Known Allergies (Unverified , 11/12/18) Subjective surgery and ID appreciated s/p debridement Objective Last 24 Hour Vital Signs Date Time Temp Pulse Resp B/P (MAP) Pulse Ox O2 Delivery O2 Flow Rate FiO2 11/16/18 00:00 98.7 62 18 126/84 (98) 98 11/15/18 21:00 Room Air 11/15/18 20:00 98.1 65 18 129/84 (99) 100 11/15/18 12:00 98.0 68 18 136/86 (103) 100 11/15/18 09:00 Room Air Intake and Output 11/15/18 11/16/18 19:00 07:00 Intake Total 400 ml 550 ml Balance 400 ml 550 ml Intake Oral 400 ml 550 ml # Voids 4 3 Laboratory Tests 11/15/18 12:15: Vancomycin Level Trough 9.5 Height (Feet): 5 Height (Inches): 11.00 Weight (Pounds): 162 Objective WDWN NAD clear breath sounds bilaterally without rhonchi or wheeze [id number] without MRG NABS nontender no HSM no CCE nonfocal right hand dressed Arsenio Pierce MD Nov 16, 2018 08:28
--- NOTE | 2018-11-16 08:46 | NUR ---
NURSE NOTES: PATIENT RECEIVED FROM KRISHAN BREWER. PATIENT IS AWAKE AND SITTING UP IN BED. BED IS LOCKED, IN LOWEST POSITION AND PATIENT HAS CALL LIGHT WITHIN REACH. WOUND VAC IS RUNNING AT 125 ON THE RIGHT WRIST.
[2018-11-16] MEDS: Morphine Sulfate 2mg/ml Inj(IV/IM USE ONLY) IVP PRN ×2 (09:27→14:08)
--- NOTE | 2018-11-16 09:59 | NUR ---
DISCHARGE PLANNING: NOTE [facility]# [id number] FACILITIES ON [facility] LIST ARE AT [facility]. T: [phone]
--- NOTE | 2018-11-16 11:51 | Infectious Diseases Prog Note ---
"Assessment/Plan Assessment/Plan antibiotics : vancomycin iv, zosyn A 1. right wrist cellulitis, possible abscess with group A streptococcus | enterobacter s/p debridement | VAC placement 2. s/p injury with handcuffs P 1. continue iv vancomycin 2. d/c zosyn 3. start cefepime 4. will follow up cultures Subjective Constitutional: Denies: fever, chills Respiratory: Denies: shortness of breath, dry cough Gastrointestinal/Abdominal: Denies: nausea, vomiting, diarrhea Musculoskeletal: Reports: pain - decreased Allergies: Coded Allergies: No Known Allergies (Unverified , 11/12/18) Objective Vital Signs Last 24 Hour Vital Signs Date Time Temp Pulse Resp B/P (MAP) Pulse Ox O2 Delivery O2 Flow Rate FiO2 11/16/18 09:00 Room Air 11/16/18 08:00 98.4 92 16 134/92 (106) 99 11/16/18 00:00 98.7 62 18 126/84 (98) 98 11/15/18 21:00 Room Air 11/15/18 20:00 98.1 65 18 129/84 (99) 100 11/15/18 12:00 98.0 68 18 136/86 (103) 100 Height (Feet): 5 Height (Inches): 11.00 Weight (Pounds): 162 Respiratory/Chest: lungs clear Cardiovascular: normal rate, regular rhythm, no gallop/murmur Abdomen: soft, non tender Extremities: no edema - right wrist in dressings, VAC Laboratory Tests Test 11/15/18 12:15 Vancomycin Level Trough 9.5 ug/mL (5.0-12.0) Current Medications Medications (Trade) Dose Ordered Sig/Elizabeth Route PRN Reason Start Time Stop Time Status Last Admin Dose Admin Acetaminophen (Tylenol) 650 mg Q4H PRN ORAL Mild Pain/Temp > 100.5 11/13/18 01:30 12/13/18 01:29 Al Hydroxide/Mg Hydroxide (Mylanta) 30 ml Q4H PRN ORAL Heartburn 11/13/18 01:30 12/13/18 01:29 Diphenhydramine HCl (Benadryl) 50 mg Q6H PRN IVP Itching 11/13/18 01:30 12/13/18 01:29 Gadobutrol (Gadavist) 7.5 mmol NOW PRN IV Radiology Procedure 11/13/18 15:30 11/17/18 15:26 Lorazepam (Ativan 2mg/ml 1ml) 1 mg Q3H PRN IV For Anxiety 11/13/18 01:30 11/20/18 01:29 11/15/18 23:45 Morphine Sulfate (Morphine Sulfate) 2 mg Q3H PRN IVP For Pain 11/13/18 01:30 11/20/18 01:29 11/16/18 09:27 Ondansetron HCl (Zofran) 4 mg Q6H PRN IVP Nausea & Vomiting 11/13/18 01:30 12/13/18 01:29 Pantoprazole (Protonix) 40 mg BID ORAL 11/13/18 09:00 12/13/18 08:59 11/16/18 09:06 Piperacillin Sod/ Tazobactam Sod 3.375 gm/Sodium Chloride 110 ml @ 27.5 mls/hr Q8H IVPB 11/13/18 04:00 11/20/18 03:59 11/16/18 04:28 Vancomycin HCl (Vanco rx to dose) 1 ea DAILY PRN MISC Per rx protocol 11/13/18 01:30 12/13/18 01:29 Vancomycin HCl 1 gm/Dextrose 275 ml @ 183.708 mls/hr Q8HR IVPB 11/14/18 13:00 11/19/18 12:59 11/16/18 06:31 Rabia Chen MD Nov 16, 2018 11:51"
[2018-11-16 12:00] VITALS: BP 135/70
--- NOTE | 2018-11-16 12:15 | NUR ---
NURSE NOTES: PATIENT WANTED TO GO OUTSIDE TO SMOKE, TOLD HIM THAT THIS WAS A NO SMOKING FACILITY. CONTACTED DR WILKS AND FOLLOWED MD ORDERS FOR A NICOTINE PATCH.
[2018-11-16] MEDS: Cefepime HCl 2 GM in D5W 55 ML IVPB SCH ×2 (13:20→20:38)
--- NOTE | 2018-11-16 13:48 | Surgery Progress Note ---
Surgery Progress Note Subjective Procedure Performed right wrist washout excisional debridement of non viable tissue wound vac placement. Additional Comments no acute events wants to go home wants to smoke pain okay tolerating diet Objective Last 24 Hour Vital Signs Date Time Temp Pulse Resp B/P (MAP) Pulse Ox O2 Delivery O2 Flow Rate FiO2 11/16/18 12:00 97.8 77 16 135/70 (91) 99 11/16/18 09:00 Room Air 11/16/18 08:00 98.4 92 16 134/92 (106) 99 11/16/18 00:00 98.7 62 18 126/84 (98) 98 11/15/18 21:00 Room Air 11/15/18 20:00 98.1 65 18 129/84 (99) 100 I&O Intake and Output 11/15/18 11/16/18 18:59 06:59 Intake Total 400 ml 550 ml Balance 400 ml 550 ml Intake Oral 400 ml 550 ml # Voids 4 3 Dressing: other Wound: other Drains: wound vac Cardiovascular: RSR Respiratory: clear Abdomen: soft, flat Extremities: edema - improved, no tenderness, no cyanosis Plan Problems: (1) Wrist laceration Assessment & Plan: 23-year-old male with history of IVDA and psych issues presents with worsening right wrist laceration/open wound after sustaining wound from being in handcuffs and combative. On the right wrist patient has a near circumferential approximately two thirds of the wrist with loss of dermis and subcutis tissue down to tendon with slough and mildly foul odor. There is edema of the right hand and all digits. Patient does have motor and sensory passive and active in the right hand and extremity. He does not exhibit any signs of radial median or ulnar nerve injury. He has a palpable right radial artery which is a significant portion of the subcu tissue has been lost. I agree with the ER physician strongly recommend the patient should have gone to a tertiary center for care. Multiple tertiary centers including [facility] [place] and [facility] were contacted for transfer given the trauma and patient needs but declined for numerous reasons. Patient is currently in our hospital facility where hand surgeon is not available. I myself is the on-call general surgeon evaluated the patient and identified that he is at risk for developing further infection and potentially loss of limb. Given these findings I discussed the above with patient in detail. Patient expressed understanding. In the meantime until patient will require care and will plan for taking patient in the operating room for wound washout debridement nonviable tissue and possible wound VAC placement. IV antibiotics IV fluids s/p OR. see report will change VAC tuesday - patient states once VAC off he will go home. he states he will take care of the wound him self at home. not advised but he states it is what he wants. cont current care Thank you will follow with Recs (2) Cellulitis (3) Psychosis (4) Extensor tendon laceration of finger with open wound (5) Elevated lactic acid level (6) Schizoaffective disorder (7) Amphetamine abuse Gustavo Corrigan Nov 16, 2018 13:48
--- NOTE | 2018-11-16 15:44 | NUR ---
CASE MANAGEMENT:REVIEW 11/16/2018 SI:RIGHT WRIST CELLULITIS T 97.8 HR 77 RR 16 B/P 135/70 SATS 99% ON RA NO LABS TODAY IS:IVF @ 100 ml/HR PROTONIX PO BID ZOSYN IV Q8H VANCO IV Q8H MED/SURG STATUS DCP: PATIENT TO BE DISCHARGED TO APPROPRIATE LOCATION ONCE MEDICALLY CLEARED.
[2018-11-16 16:00] VITALS: BP 105/68
--- NOTE | 2018-11-16 19:35 | NUR ---
HAND-OFF: Report given to Taco NICKERSON. Patient stable, sleeping in bed which is locked, x2 side rails, call light within reach. Left AC IV saline locked dry and intact. Wound Vac running at 125MmHg,Right wrist dressing is clean dry and intact.
--- NOTE | 2018-11-16 19:40 | NUR ---
NURSE NOTES: Cont... non-healing wound. Safety precaution in place; siderails X2 up, call light within reach, bed in lowest position, brakes and alarm on at all times. Will continue plan of care and monitor for any changes noted.
--- NOTE | 2018-11-16 19:40 | NUR ---
NURSE NOTES: Received report from Elvis Kumar RN. Patient in bed AAO X4 with no complaints of acute pain or distress noted at this time. Kept clean, dry, and comfortable in bed. Able to express needs and wants with no difficulty, IV line intact SL. Able to ambulate to the bathroom with assist and offered urinal at bedside PRN. Noted dressing on right arm for cellulitis, kept clean and dry. Right forearm noted with intact and healing non- Addendum: 11/17/18 at 0359 by GEOFFREY YOUNG RN Left forearm noted with intact and non-open wound.
[2018-11-16 20:00] VITALS: BP 118/79
--- NOTE | 2018-11-16 22:00 | NUR ---
NURSE NOTES: Patient requested to be helped to ambulate to the bathroom. Staff assist rendered, Right arm intact and kept dry with wound Vac in place. Will continue to monitor.
[2018-11-17] VITALS: BP 121/76
--- NOTE | 2018-11-17 01:00 | NUR ---
NURSE NOTES: Previous IV site DCd and reinserted new one. New IV intact and patent SL. Kept clean, dry, and comfortable in bed. Will continue to monitor.
[2018-11-17 04:00] VITALS: BP 122/75
--- NOTE | 2018-11-17 05:00 | NUR ---
NURSE NOTES: Patient in bed asleep with no S/S of distress or discomfort noted at this time. Right arm DSG dry and intact with Wound vac at bedside. Will continue to monitor.
[2018-11-17] MEDS: Vancomycin 1gm/D5W 275ml IVPB SCH ×2 (06:21)
--- NOTE | 2018-11-17 07:22 | NUR ---
HAND-OFF: Report given to Sondra García RN. Patient in stable condition, endorsed plan of care.
--- NOTE | 2018-11-17 07:25 | NUR ---
NURSE NOTES: Patient lying in bed awake. No complain of pain or distress at this time. Skin intact and dry. Surgical dressing intact and dry. Wound vac on going as ordered. IV dressing intact and dry. Bed lowest position. Call light within reach. Will continue to monitor.
[2018-11-17 08:00] VITALS: BP 120/73
--- NOTE | 2018-11-17 08:52 | General Progress Note ---
Assessment/Plan Assessment/Plan: extensive laceration secondary infection post op s/p I and D PLAN wound vac- ? dc supportive care antibiotics per ID possible dc CM aware Subjective Allergies: Coded Allergies: No Known Allergies (Unverified , 11/12/18) Subjective surgery and ID appreciated s/p debridement Objective Last 24 Hour Vital Signs Date Time Temp Pulse Resp B/P (MAP) Pulse Ox O2 Delivery O2 Flow Rate FiO2 11/17/18 04:00 98.1 68 18 122/75 (91) 98 11/17/18 00:00 98.0 76 18 121/76 (91) 98 11/16/18 21:00 Room Air 11/16/18 20:00 97.8 72 20 118/79 (92) 100 11/16/18 16:00 97.7 63 16 105/68 (80) 97 11/16/18 14:38 97.8 11/16/18 12:00 97.8 77 16 135/70 (91) 99 11/16/18 09:00 Room Air Intake and Output 11/16/18 11/17/18 19:00 07:00 Intake Total 1167.416 ml Output Total 155 ml Balance 1012.416 ml Intake Oral 800 ml IV Total 367.416 ml Emesis 150 ml Drainage Total 5 ml # Voids 4 1 # Bowel Movements 2 Height (Feet): 5 Height (Inches): 11.00 Weight (Pounds): 162 Objective WDWN NAD clear breath sounds bilaterally without rhonchi or wheeze [id number] without MRG NABS nontender no HSM no CCE nonfocal right hand dressed Arsenio Pierce MD Nov 17, 2018 08:52
[2018-11-17] MEDS: Cefepime HCl 2 GM in D5W 55 ML IVPB SCH (09:27)
[2018-11-17] MEDS ORDERED: Levofloxacin 500mg tab ORAL SCH ×2 (11:00)
--- NOTE | 2018-11-17 11:00 | Infectious Diseases Prog Note ---
"Assessment/Plan Assessment/Plan antibiotics : vancomycin iv, cefepime A 1. right wrist cellulitis, possible abscess with group A streptococcus | enterobacter s/p debridement | VAC placement 2. s/p injury with handcuffs P 1. d/c iv vancomycin, cefepime 2. start and continue po levoquin 9 more days 3. will follow up cultures Subjective Constitutional: Denies: fever, chills Respiratory: Denies: shortness of breath, dry cough Gastrointestinal/Abdominal: Reports: nausea, vomiting - yesterday; Denies: diarrhea Musculoskeletal: Reports: pain - decreased in right arm Allergies: Coded Allergies: No Known Allergies (Unverified , 11/12/18) Objective Vital Signs Last 24 Hour Vital Signs Date Time Temp Pulse Resp B/P (MAP) Pulse Ox O2 Delivery O2 Flow Rate FiO2 11/17/18 09:00 Room Air 11/17/18 08:00 98.2 79 17 120/73 (89) 100 11/17/18 04:00 98.1 68 18 122/75 (91) 98 11/17/18 00:00 98.0 76 18 121/76 (91) 98 11/16/18 21:00 Room Air 11/16/18 20:00 97.8 72 20 118/79 (92) 100 11/16/18 16:00 97.7 63 16 105/68 (80) 97 11/16/18 14:38 97.8 11/16/18 12:00 97.8 77 16 135/70 (91) 99 Height (Feet): 5 Height (Inches): 11.00 Weight (Pounds): 162 Microbiology Date/Time Source Procedure Growth Status 11/14/18 21:06 Rectum VRE Culture - Final NO VANCOMYCIN RESISTANT ENTEROCOCCUS ... Complete 11/14/18 21:06 Rectum - Final NO CARBAPENEM-RESISTANT ENTEROBACTERI... Complete Current Medications Medications (Trade) Dose Ordered Sig/Elizabeth Route PRN Reason Start Time Stop Time Status Last Admin Dose Admin Acetaminophen (Tylenol) 650 mg Q4H PRN ORAL Mild Pain/Temp > 100.5 11/13/18 01:30 12/13/18 01:29 Al Hydroxide/Mg Hydroxide (Mylanta) 30 ml Q4H PRN ORAL Heartburn 11/13/18 01:30 12/13/18 01:29 Cefepime HCl 2 gm/ Dextrose 55 ml @ 110 mls/hr EVERY 12 HOURS IVPB 11/16/18 13:00 11/23/18 12:59 11/17/18 09:27 Diphenhydramine HCl (Benadryl) 50 mg Q6H PRN IVP Itching 11/13/18 01:30 12/13/18 01:29 11/16/18 23:35 Gadobutrol (Gadavist) 7.5 mmol NOW PRN IV Radiology Procedure 11/13/18 15:30 11/17/18 15:26 Lorazepam (Ativan 2mg/ml 1ml) 1 mg Q3H PRN IV For Anxiety 11/13/18 01:30 11/20/18 01:29 11/15/18 23:45 Morphine Sulfate (Morphine Sulfate) 2 mg Q3H PRN IVP For Pain 11/13/18 01:30 11/20/18 01:29 11/16/18 14:08 Nicotine (Nicoderm) 1 patch Q24H TDERMAL 11/16/18 13:00 12/16/18 12:59 11/16/18 12:54 Ondansetron HCl (Zofran) 4 mg Q6H PRN IVP Nausea & Vomiting 11/13/18 01:30 12/13/18 01:29 11/16/18 15:04 Pantoprazole (Protonix) 40 mg BID ORAL 11/13/18 09:00 12/13/18 08:59 11/17/18 09:27 Vancomycin HCl (Vanco rx to dose) 1 ea DAILY PRN MISC Per rx protocol 11/13/18 01:30 12/13/18 01:29 Vancomycin HCl 1 gm/Dextrose 275 ml @ 183.708 mls/hr Q8HR IVPB 11/14/18 13:00 11/19/18 12:59 11/17/18 06:21 Rabia Chen MD Nov 17, 2018 11:00"
--- NOTE | 2018-11-17 11:44 | NUR ---
RD ASSESSMENT & RECOMMENDATIONS SEE CARE ACTIVITY FOR COMPLETE ASSESSMENT DAILY ESTIMATED NEEDS: Needs based on Wound, underweight/ 59kg 30-35 kcals/kg 8745-0525 total kcals 1.25-1.8 g protein/kg 74-106 g total protein 25-30 mL/kg 7830-3063 total fluid mLs NUTRITION DIAGNOSIS: Increased kcal/prot intake needs R/T wound healing, underweight status as evidenced by pt admitted w/ open wound @ rt wrist with loss of dermis and subcutis tissue down to tendon with slough and mildly foul odor per MD, s/p debridement and wound vac placement, low BMI per guidelines. CURRENT DIET:REGULAR PO DIET RECOMMENDATIONS: REGULAR, double protein portions + Snacks TID ADDITIONAL RECOMMENDATIONS: * Standing wt for accurate CBW, weekly wts given underweight status * Wound healing: add MVI w/ min 1 tab QD, Vit C 500mg BID : ZnSO4 220mg QD x 10 days : Darin 1pkt BID * Snacks TID in b/w meals
[2018-11-17 12:00] VITALS: BP 118/78
--- NOTE | 2018-11-17 13:57 | NUR ---
CASE MANAGEMENT:REVIEW 11/17/2018 SI:RIGHT WRIST CELLULITIS T 98 HR 86 RR 18 B/P 118/78 SATS 100% ON RA NO LABS TODAY IS:IVF @ 100 ml/HR PROTONIX PO BID ZOSYN IV Q8H VANCO IV Q8H MED/SURG STATUS DCP: PATIENT TO BE DISCHARGED TO APPROPRIATE LOCATION ONCE MEDICALLY CLEARED.
--- NOTE | 2018-11-17 14:04 | NUR ---
DISCHARGE PLANNING: NOTE [facility] [place]# [id number] FACILITIES ON [facility] [place] LIST ARE AT [facility]AC[facility]. T: [phone]
--- NOTE | 2018-11-17 15:05 | Surgery Progress Note ---
Surgery Progress Note Subjective Procedure Performed right wrist washout excisional debridement of non viable tissue wound vac placement. Additional Comments VAC removed at bedside wound much improved edema resolved in hand wound clean and beginning to granulate no non viable tissue noted! i reviewed wound with patient. I expressed to him the complexity of wound and high risk wound given location patient is very clear that he will leave hospital today and is very understanding of risks he states he is able to care for wound and lives with people who can help him has stated his friends are cleaning his place now for him Objective Last 24 Hour Vital Signs Date Time Temp Pulse Resp B/P (MAP) Pulse Ox O2 Delivery O2 Flow Rate FiO2 11/17/18 12:00 98.0 86 18 118/78 (91) 100 11/17/18 09:00 Room Air 11/17/18 08:00 98.2 79 17 120/73 (89) 100 11/17/18 04:00 98.1 68 18 122/75 (91) 98 11/17/18 00:00 98.0 76 18 121/76 (91) 98 11/16/18 21:00 Room Air 11/16/18 20:00 97.8 72 20 118/79 (92) 100 11/16/18 16:00 97.7 63 16 105/68 (80) 97 I&O Intake and Output 11/16/18 11/17/18 18:59 06:59 Intake Total 1167.416 ml Output Total 155 ml Balance 1012.416 ml Intake Oral 800 ml IV Total 367.416 ml Emesis 150 ml Drainage Total 5 ml # Voids 4 1 # Bowel Movements 2 Dressing: saturated Wound: clean Cardiovascular: RSR Respiratory: clear Abdomen: soft Extremities: tenderness, no edema, no cyanosis Plan Problems: (1) Wrist laceration Assessment & Plan: 23-year-old male with history of IVDA and psych issues presents with worsening right wrist laceration/open wound after sustaining wound from being in handcuffs and combative. On the right wrist patient has a near circumferential approximately two thirds of the wrist with loss of dermis and subcutis tissue down to tendon with slough and mildly foul odor. There is edema of the right hand and all digits. Patient does have motor and sensory passive and active in the right hand and extremity. He does not exhibit any signs of radial median or ulnar nerve injury. He has a palpable right radial artery which is a significant portion of the subcu tissue has been lost. I agree with the ER physician strongly recommend the patient should have gone to a tertiary center for care. [place] [facility] [place] [facility] were contacted for transfer given the trauma and patient needs but declined for numerous reasons. Patient is currently in our hospital facility where hand surgeon is not available. I myself is the on-call general surgeon evaluated the patient and identified that he is at risk for developing further infection and potentially loss of limb. Given these findings I discussed the above with patient in detail. Patient expressed understanding. In the meantime until patient will require care and will plan for taking patient in the operating room for wound washout debridement nonviable tissue and possible wound VAC placement. IV antibiotics IV fluids s/p OR. see report i reviewed wound with patient. I expressed to him the complexity of wound and high risk wound given location patient is very clear that he will leave hospital today and is very understanding of risks he states he is able to care for wound and lives with people who can help him has stated his friends are cleaning his place now for him wound not ready for closure or flap needs further granulation tissue. he is clear on wound care instructions and wound changed with him he will follow up with PCP and get referral for outpatient eval and assistance for closure thank you (2) Cellulitis (3) Psychosis (4) Extensor tendon laceration of finger with open wound (5) Elevated lactic acid level (6) Schizoaffective disorder (7) Amphetamine abuse Gustavo Corrigan Nov 17, 2018 15:05
--- NOTE | 2018-11-17 15:07 | NUR ---
NURSE NOTES: Spoke to regarding discharge and new order received. Order read back and carried out.
[2018-11-17] MEDS ORDERED: ACETAMINOPHEN-1 EAC1 ORAL (15:09)
[2018-11-17] MEDS ORDERED: LEVAQUIN500 MG ORAL (15:09)
[2018-11-17 16:00] VITALS: BP 112/70
--- NOTE | 2018-11-17 16:38 | NUR ---
Social Service Note BLAS met with patient in anticipation of impending dc planning and follow up care. Patient is alert, oriented and verbally responsive. Patient with a history of homelessness and being an at risk youth. Patient states his grandparents adopted him and his sister Shiloh (16 years old). Patient's grandfather Monica Pedroza [phone]. Per patient his grandmother returned to [place]. Patient states he has a case manger through [facility]. Patient was placed at [facility] through this program. Patient states he is schizophrenia and has PTSD. Patient states he has recently started shooting up meth, previously he would just smoke meth. Patient showed slight insight into his meth use excerebration of his mental health symptoms, such as hearing voices and paranoia. Patient states he hasn't seen his program site psychiatrist since his admission to the program a few weeks ago. Patient states he sustained his injury while he was handcuffed while naked and high at his housing program. Patient shows no intent into decreasing or stopping his drug use. Patient states he doesn't pay for the drugs so why not do them. However indicates that he has been mandated by the court to attend substance abuse classes and could be required to provide a sample for random drug testing. BLAS provided education on recurrent drug use. BLAS spoke with service provider Elie Andersen [phone], [email or web address]. Elie will inform program professional of the need for medical follow up. Per Elie their program utilizes the [facility] in [place] and will arrange for follow up care. Antibiotics will be provided in full upon discharge. Per nurse a 7 day supply of wound care supplies provided. Elie states patient shows poor insight into his medical, mental health and substance abuse care. Per Elie patient able to return to housing unit at anytime. Taxi will be provided upon discharge. Homeless check list provided to primary nurse.
--- NOTE | 2018-11-17 18:30 | NUR ---
NURSE NOTES: Patient discharged by justin in stable condition. Discharge instruction given to patient and Instructed to follow up with MD for wound care and verbalized understanding. Provided education on how to change wound dressing. Patient verbalized understanding and able to give return demonstration. Prescription for pain medication and antibiotic given to patient. Belonging and extra supplies for wound dressing change given to patient. IV and ID removed. Patient discharged in stable condition with all his belonging.
--- NOTE | 2018-11-19 20:41 | Discharge Summary ---
Discharge Summary Discharge Summary _ DATE OF ADMISSION: 11/12/2018 DATE OF DISCHARGE: 11/17/2018 DISCHARGED BY: Dr. Pierce REASON FOR ADMISSION: 23 years old male with past medical history of schizophrenia, residing in a rehab motel, was brought in due to right wrist injury from handcuffs several days ago. Patient apparently was arrested at the facility Tuesday or Tuesday and placed in handcuffs at that time. Records from [facility] from November 09 revealed that the ultrasound was performed. No abscess was found. Patient signed AGAINST MEDICAL ADVICE from [facility] and was given prescription for Bactrim and Keflex. Patient never filled prescription. X-ray of the right wrist reveal no definite acute bony trauma. Possible lateral soft tissue defect. Upon clinical evaluation noted deep laceration to the right radial side of the wrist with tendon and bone exposed. Laboratory work-up revealed elevated lactic acid -7.4. Urine toxicology screen was positive for amphetamine and marijuana. Serum toxicology screen negative for salicylate, Tylenol, or alcohol. Patient started on fluid resuscitation and empiric antibiotics. Patient was unable to be transferred to higher level of care. Patient subsequently was admitted for further evaluation and management. CONSULTANTS: ID specialist Dr. Chen surgery Dr. Corrigan [facility] COURSE: Patient admitted to medical surgical floor. Surgical consult was requested. Patient subsequently undergone MRI of the right wrist , which revealed evidence of soft tissue laceration over the radial styloid. It appeared to involve the subcutaneous fat. Evidence of diffuse circumferential soft tissue edema , possibly indicative of cellulitis. No finding to suggest abscess. No evidence of acute osteomyelitis, tendon injury or fracture. No evidence of foreign body. Patient was continued on IV antibiotic as per ID specialist recommendation. Surgeon closely followed. Patient subsequently undergone wound exploration of right wrist open wound with washout, excisional debridement of nonviable right wrist tissue, evaluation of fascia and tendon in the right wrist and wound VAC placement. Blood cultures were negative. Wound culture revealed Enterobacter and Streptococcus group A. Repeated lactic acid 0.5. While in the hospital, patient was on IV antibiotic as per ID specialist management. Upon discharge patient was transitioned to oral Levaquin to continue for 9 more days. Pain management was addressed. Supportive care provided. Case management was involved in discharge planning. Facility on MAC list were at the capacity. ornamental ironworker helper spoke with patient's service provider. Per conversation with service provider , the program utilizes the [facility] in [place]. Patient was provided with prescription and 7-day supply of wound care supplies. Wound significantly improved, as per surgeon. Edema resolved, wound beginning to granulate, no nonviable tissue was noted. Prior to discharge VAC removed at the bedside. Patient subsequently returned to housing unit. Patient to follow-up with [facility] . FINAL DIAGNOSES: Right wrist cellulitis, possible abscess with group A streptococci and Enterobacter Extensive laceration of right wrist with exposed tendons and fascia Status post wound exploration of right wrist open wound, right wrist open wound washout, excisional debridement of nonviable right wrist tissue, evaluation of fascia and tendon in the right wrist, placement of wound VAC Status post injury with handcuffs Schizophrenia DISCHARGE MEDICATIONS: See Medication Reconciliation list. DISCHARGE INSTRUCTIONS: Patient was discharged to prior housing arrangement. Follow-up with [facility] at [place]. I have been assigned to dictate discharge summary for this account. I was not involved in the patient's management. Yaritza Shay NP Nov 19, 2018 20:41
--- NOTE | 2018-11-20 12:23 | NUR ---
HOMELESS COORDINATOR HC spoke with patient and patient is alert and oriented. Patient does have a contact number or . Patient states he is not Homeless and lives at current address; [address] [place] [address]. [address] [place] [address]. Patient states his housing program is thru a homeless mental/ substance abuse program. Patient states he receives [employer] $200 and [employer] [place] $220 monthly. Patient refuses resources for substance abuse and mental health. Patients PCP is [facility] , HC also provided resources for additional clinic. Patient continues to require medical intervention. Will continue to monitor and assist as needed.
== END 2018-11-17 18:33 | disposition home or self-care (01) | DRG 383 ==
LOC: EDBD 15:37 → EMR 15:59 → 3E 17:33 → EDBEDREQ 23:18 → 3E 11-13 00:26
PROC: 0JBG0ZZ Excision of Right Lower Arm Subcutaneous Tissue and Fascia, Open Approach (ICD-10-PCS; principal; 2018-11-14 15:00)
DX: L02.413 Cutaneous abscess of right upper limb (principal); F25.9 Schizoaffective disorder, unspecified; L03.113 Cellulitis of right upper limb; S61.511A Laceration without foreign body of right wrist, initial encounter; Y35.893A Legal intervention involving other specified means, suspect injured, initial encounter; F15.10 Other stimulant abuse, uncomplicated; B95.0 Streptococcus, group A, as the cause of diseases classified elsewhere; B96.89 Other specified bacterial agents as the cause of diseases classified elsewhere
CPT/HCPCS: 36415; 80048; 80053; 80202; 80307; 80329; 81003; 82550; 83605; 85025; 85610; 85651; 85730; 86140; 87040; 87070; 87081; 87181; 87205; 90471; 90714; 90715; 94003; 94150; 96360; 96361; 96372; 99291; A9585; J2250; J2405; J8499